=== PATIENT | male | born 1955 | race American Indian/Alaskan Native ===

== ENCOUNTER 2017-01-17 16:48 | Emergency (ER) | payer BC ==
[2017-01-17 18:16] VITALS: BMI 22.4
[2017-01-17 18:20] VITALS: O2SAT 100
--- NOTE | 2017-01-17 20:26 | C.PDOC ---
History Of Present Illness 61 y/o male presents to ED with complaint of dizziness, worse with head movement , for the last 2 weeks. Patient with history of benign positional dizziness, now concerned because episodes have been lasting longer. Patient states he was prescribed Antivert by Dr. Abby Cruz, taken 3 times a day, without improvement of symptoms. Otherwise, denies fever, chills, headache, nausea, vomiting, new weakness or numbness. Time Seen by Provider: 01/17/17 19:37 Chief Complaint (Nursing): Dizziness/Lightheaded History Per: Patient History/Exam Limitations: no limitations Onset/Duration Of Symptoms: Days Current Symptoms Are (Timing): Still Present Seizure Or Post-ictal Symptoms: None Fall Associated With With Symptoms: No Recent travel outside of the [place]: No Past Medical History Reviewed: Historical Data, Nursing Documentation, Vital Signs Vital Signs: Last Vital Signs Temp 97.8 F 01/17/17 21:15 Pulse 63 01/17/17 21:15 Resp 18 01/17/17 21:15 BP 115/67 01/17/17 21:15 Pulse Ox 100 01/17/17 21:52 - Medical History PMH: Fractures (LEFT FOREARM), Gastritis, HTN (CONTROLLED BY DIET.), Seizures ( A CHILD; STOPPED BY AGE 16) - [facility] Procedures ENDOSCOPIC BRONCHIAL BX (12/07/14) ESOPHAGOGASTRODUODENOSCOPY [EGD] W/CLOSED BIOPSY (02/20/14) SPINAL TAP (01/20/13) Family History: States: Unknown Family Hx - Social History Hx Tobacco Use: Yes Hx Alcohol Use: No Hx Substance Use: No - Immunization History Hx Tetanus Toxoid Vaccination: No Hx Influenza Vaccination: No Hx Pneumococcal Vaccination: No Review Of Systems Except As Marked, All Systems Reviewed And Found Negative. Constitutional: Negative for: Fever, Chills Cardiovascular: Negative for: Chest Pain, Palpitations Respiratory: Negative for: Cough, Shortness of Breath Gastrointestinal: Negative for: Nausea, Vomiting Musculoskeletal: Negative for: Neck Pain Neurological: Positive for: Dizziness. Negative for: Weakness, Numbness, Headache Physical Exam - Physical Exam Appears: Non-toxic, No Acute Distress Skin: Normal Color, Warm, Dry Head: Atraumatic, Normacephalic Eye(s): bilateral: EOMI, Other (pinpoint pupils) Ear(s): Bilateral: Normal Nose: Normal Oral Mucosa: Moist Throat: Normal, No Erythema, No Exudate, No Drooling Neck: Normal ROM, Supple Chest: Symmetrical Cardiovascular: Rhythm Regular, No Murmur Respiratory: Normal Breath Sounds, No Rales, No Rhonchi, No Wheezing Gastrointestinal/Abdominal: Soft, No Tenderness Back: Normal Inspection Extremity: Normal ROM, Capillary Refill (< 2 sec. ) Neurological/Psych: Oriented x3, Normal Speech, Normal Cognition ED Course And Treatment - Laboratory Results Result Diagrams: 01/17/17 20:37 01/17/17 20:37 Lab Interpretation: Normal (trop neg) ECG: Interpreted By Me ECG Rhythm: Sinus Rhythm, R BBB (incomplete) ECG Interpretation: Normal Rate From EC O2 Sat by Pulse Oximetry: 100 (RA) Pulse Ox Interpretation: Normal - Radiology CXR: Interpreted by Me CXR Interpretation: Yes: No Acute Disease - CT Scan/US CT Head Other Rad Studies (CT/US): Read By Radiologist, Radiology Report Reviewed CT/US Interpretation: IMPRESSION: No acute findings. Progress Note: EKG, CxR, CT head, bloodwork, urinalysis ordered. Treated with Antivert. Reevaluation Time: 21:48 Reassessment Condition: Improved Medical Decision Making Medical Decision Making: consider BPV- improved with Meclizine, normal w/u and head CT Disposition Doctor Will See Patient In The: Office Counseled Patient/Family Regarding: Studies Performed, Diagnosis - Disposition Referrals: Hannah Cruz MD [Staff Provider] - Disposition: HOME/ ROUTINE Disposition Time: 21:50 Condition: GOOD Additional Instructions: continue Meclizine/Antivert 25 mg every 6-8 hours as needed Follow-up with Dr. Cruz Consider Neurology follow-up of her preference. Prescriptions: Meclizine [Meclizine*] 25 mg PO Q6 PRN #30 tab PRN Reason: vertigo Instructions: Vertigo (ED), Benign Paroxysmal Positional Vertigo (ED) - Clinical Impression Clinical Impression: Vertigo - Scribe Statement The provider has reviewed the documentation as recorded by the Jamesibmaurilio Lanier Provider Scribe Attestation: All medical record entries made by the Scribe were at my direction and personally dictated by me. I have reviewed the chart and agree that the record accurately reflects my personal performance of the history, physical exam, medical decision making, and the department course for this patient. I have also personally directed, reviewed, and agree with the discharge instructions and disposition.
[2017-01-17 20:42] LABS: BASO % 0.9 % (0.0-2.0); EOS # 0.3 K/uL (0.0-0.7); EOS % 5.4 % (0.0-4.0); HEMATOCRIT 41.6 % (35.0-51.0); LYMPH # 2.1 K/uL (1.0-4.3); LYMPH % 40.6 % (20.0-40.0); MEAN CELL VOLUME 90.4 fL (80.0-94.0); MEAN CORPUSCULAR HEMOGLOBIN 29.4 pg (27.0-31.0); MEAN CORPUSCULAR HGB CONC 32.6 g/dL (33.0-37.0); MEAN PLATELET VOLUME 7.4 fL (7.2-11.7); MONO # 0.5 K/uL (0.0-0.8); MONO % 9.9 % (0.0-10.0); RED CELL DISTRIBUTION WIDTH 15.1 % (11.5-14.5); WHITE BLOOD COUNT 5.2 K/uL (4.8-10.8)
[2017-01-17 20:48] LABS: CHLORIDE 103 mmol/L (98-107)
[2017-01-17 20:49] LABS: POTASSIUM 4.3 mmol/L (3.6-5.2); SODIUM 138 mmol/L (132-148)
[2017-01-17 20:50] LABS: CHOLESTEROL 167 mg/dL (0-199)
[2017-01-17 20:51] LABS: ALB/GLOB RATIO 1.4 (1.0-2.1); ALKALINE PHOSPHATASE 58 U/L (38-126); ALT/SGPT 24 U/L (21-72); AST/SGOT 32 U/L (17-59); BLOOD UREA NITROGEN 14 mg/dL (9-20); CARBON DIOXIDE 26 mmol/L (22-30); GFR AFRICAN-AMERICAN > 60; GLUCOSE,RANDOM 84 mg/dL (75-110); TOTAL PROTEIN 7.5 g/dL (6.3-8.3)
[2017-01-17 20:52] LABS: ALCOHOL SERUM < 10 mg/dl (0-10); CALCIUM 8.9 mg/dl (8.6-10.4)
[2017-01-17 20:55] LABS: INR 1.2
[2017-01-17 21:16] VITALS: BP 115/67; PULSE 63; RESP 18; TEMP 97.8
--- NOTE | 2017-01-18 08:26 | CT ---
PROCEDURE: CT HEAD WITHOUT CONTRAST. HISTORY: Vertigo COMPARISON: None available. TECHNIQUE: Axial computed tomography images were obtained through the head/brain without intravenous contrast. Radiation dose: Total exam DLP = 748 mGy-cm. This CT exam was performed using one or more of the following dose reduction techniques: Automated exposure control, adjustment of the mA and/or kV according to patient size, and/or use of iterative reconstruction technique. FINDINGS: HEMORRHAGE: No intracranial hemorrhage. BRAIN: Mild to moderate brain volume loss. Scattered focal lucencies in the subcortical and periventricular white matter suggestive for chronic microvascular ischemic change. VENTRICLES: Unremarkable. No hydrocephalus. CALVARIUM: Unremarkable. PARANASAL SINUSES: Unremarkable as visualized. No significant inflammatory changes. MASTOID AIR CELLS: Unremarkable as visualized. No inflammatory changes. OTHER FINDINGS: None. IMPRESSION: Mild to moderate brain volume loss. Chronic microvascular ischemic change. If focal neurologic deficit persists, consider further evaluation with MRI. These findings were preliminarily reported at 8:46 p.m. on 01/17/[address] Shakeel Brooks from [facility].
--- NOTE | 2017-01-18 08:48 | RAD ---
HISTORY: dizzy COMPARISON: 11/04/2015 FINDINGS: LUNGS: Biapical pleural thickening with upper lobe granulomatous changes. No focal infiltrate or effusion. Mild venous congestion. PLEURA: No significant pleural effusion identified, no pneumothorax apparent. CARDIOVASCULAR: Normal. OSSEOUS STRUCTURES: No significant abnormalities. VISUALIZED UPPER ABDOMEN: Normal. OTHER FINDINGS: None. IMPRESSION: Biapical pleural thickening with upper lobe granulomatous changes. No focal infiltrate or effusion. Mild venous congestion.
--- NOTE | 2017-01-18 10:21 | CARD ---
APPROVED REPORT EKG Measurement Heart [id number] <Conclusion> Normal sinus rhythm ST elevation, consider early repolarization, pericarditis, or injury Abnormal ECG
== END 2017-01-17 22:05 | disposition home or self-care (01) ==
LOC: C.ER 16:48
DX: R42 Dizziness and giddiness (principal)
CPT/HCPCS: 70450; 71010; 80053; 80061; 83036; 84484; 85025; 85610; 85730; 86850; 86900; 93005; 99285; G0480

== ENCOUNTER 2017-03-14 15:25 | Emergency (ER) | payer BC ==
[2017-03-14 15:26] VITALS: BMI 22.4
--- NOTE | 2017-03-14 16:42 | C.PDOC ---
History Of Present Illness <Antwon Gregory - Last Filed: 03/14/17 20:17> <Klaus Dorsey - Last Filed: 03/15/17 19:26> 62M c/o epigastric pain that started at 1pm today. pain is constant and worse with moving and breathing. he has not had this before. (Klaus Dorsey) <Anwton Gregory - Last Filed: 03/14/17 20:17> <Klaus Dorsey - Last Filed: 03/15/17 19:26> Time Seen by Provider: 03/14/17 16:42 Chief Complaint (Nursing): Abdominal Pain Past Medical History - Medical History PMH: Fractures (LEFT FOREARM), Gastritis, HTN (CONTROLLED BY DIET.), Seizures ( A CHILD; STOPPED BY AGE 16) Denies: Chronic Kidney Disease Family History: States: Other Other Family History: nc - Social History Hx Tobacco Use: Yes Hx Alcohol Use: No Hx Substance Use: No - Immunization History Hx Tetanus Toxoid Vaccination: No Hx Influenza Vaccination: No Hx Pneumococcal Vaccination: No <Klaus Dorsey - Last Filed: 03/15/17 19:26> Vital Signs: Last Vital Signs Temp 97.6 F 03/14/17 20:34 Pulse 60 03/14/17 20:34 Resp 20 03/14/17 20:34 BP 112/76 03/14/17 20:34 Pulse Ox 100 03/14/17 20:34 - [facility] Procedures ENDOSCOPIC BRONCHIAL BX (12/07/14) ESOPHAGOGASTRODUODENOSCOPY [EGD] W/CLOSED BIOPSY (02/20/14) SPINAL TAP (01/20/13) Review Of Systems Constitutional: Negative for: Fever, Chills, Weakness, Malaise Cardiovascular: Negative for: Chest Pain, Edema, Light Headedness Respiratory: Negative for: Cough, Shortness of Breath, Hemoptysis Gastrointestinal: Positive for: Abdominal Pain. Negative for: Nausea, Vomiting , Diarrhea Genitourinary: Negative for: Dysuria Neurological: Negative for: Weakness, Numbness, Altered Mental Status, Headache <Klaus Dorsey - Last Filed: 03/15/17 19:26> Physical Exam - Physical Exam Appears: Non-toxic Skin: Warm, Dry, No Diaphoretic Head: Atraumatic Eye(s): bilateral: PERRL Nose: No Epistaxis Oral Mucosa: Moist Neck: Normal ROM Cardiovascular: Rhythm Regular Respiratory: No Decreased Breath Sounds, No Accessory Muscle Use, No Rales, No Rhonchi, No Wheezing Gastrointestinal/Abdominal: Soft, Tenderness (epigastric), No Distention, No Guarding, No Rebound Extremity: No Swelling Neurological/Psych: Oriented x3, Other (no focal deficits) <Klaus Dorsey - Last Filed: 03/15/17 19:26> ED Course And Treatment - Laboratory Results Result Diagrams: 03/14/17 17:20 03/14/17 17:20 <Antwon Gregory - Last Filed: 03/14/17 20:17> - Laboratory Results Result Diagrams: 03/14/17 17:20 03/14/17 17:20 O2 Sat by Pulse Oximetry: 98 <Klaus Dorsey - Last Filed: 03/15/17 19:26> Medical Decision Making <Antwon Gregory - Last Filed: 03/14/17 20:17> <Klaus Dorsey - Last Filed: 03/15/17 19:26> Medical Decision Making: ecg- sinus brenden 55, nl axis, no acute ischmia, similar to prior 01/17/17 (Klaus Dorsey) Disposition Counseled Patient/Family Regarding: Studies Performed, Diagnosis, Need For Followup - Disposition Disposition Time: 19:00 <Antwon Gregory - Last Filed: 03/14/17 20:17> <Klaus Dorsey - Last Filed: 03/15/17 19:26> - Disposition Referrals: [facility] [Outside] [facility] [Outside] Salvador Alfaro MD [Staff Provider] - Disposition: HOSPITALIZED Condition: FAIR Additional Instructions: Please follow up regarding the hypervascular liver lesion. Might need a repeat CT scan in 6 months Instructions: Gas and Bloating (ED), Abdominal Pain (ED) - Clinical Impression Clinical Impression: Abdominal pain, Liver lesion, Enlarged prostate Physician Patient Turnover Patient Signed Over To: Antwon Gregory Handoff Comments: pending CT <Klaus Dorsey - Last Filed: 03/15/17 19:26>
--- NOTE | 2017-03-14 17:27 | RAD ---
HISTORY: Chest pain COMPARISON: 01/17/2017. TECHNIQUE: Chest PA and lateral FINDINGS: LUNGS: The lungs are hyperinflated and there is peribronchial thickening with chronic changes in both lungs. There is no focal consolidation. PLEURA: No significant pleural effusion identified. No pneumothorax apparent. CARDIOVASCULAR: Normal. OSSEOUS STRUCTURES: No significant abnormalities. VISUALIZED UPPER ABDOMEN: Normal. OTHER FINDINGS: None. IMPRESSION: No active pulmonary disease. COPD.
[2017-03-14 17:39] LABS: EOS # 0.3 K/uL (0.0-0.7); EOS % 6.3 % (0.0-4.0); HEMOGLOBIN 12.8 g/dL (12.0-18.0); LYMPH # 1.7 K/uL (1.0-4.3); LYMPH % 35.9 % (20.0-40.0); MEAN CELL VOLUME 90.5 fL (80.0-94.0); MEAN CORPUSCULAR HEMOGLOBIN 29.5 pg (27.0-31.0); MEAN CORPUSCULAR HGB CONC 32.6 g/dL (33.0-37.0); MEAN PLATELET VOLUME 7.3 fL (7.2-11.7); MONO # 0.5 K/uL (0.0-0.8); MONO % 9.8 % (0.0-10.0); NEUT # 2.3 K/uL (1.8-7.0); RBC 4.33 Mil/uL (4.40-5.90); RED CELL DISTRIBUTION WIDTH 15.1 % (11.5-14.5); WHITE BLOOD COUNT 4.9 K/uL (4.8-10.8)
[2017-03-14 17:43] LABS: ALBUMIN 3.9 g/dL (3.5-5.0)
[2017-03-14 17:45] LABS: GFR AFRICAN-AMERICAN > 60; GFR NON-AFRICAN AMERICAN > 60
[2017-03-14 17:46] LABS: ALB/GLOB RATIO 1.2 (1.0-2.1); ALT/SGPT 20 U/L (21-72); AST/SGOT 28 U/L (17-59); BLOOD UREA NITROGEN 10 mg/dL (9-20); CALCIUM 8.8 mg/dl (8.6-10.4); LIPASE 82 U/L (23-300)
[2017-03-14] MEDS ORDERED: Iohexol 350mg/ml 100 ML ONE (18:30)
--- NOTE | 2017-03-14 20:11 | CT ---
EXAM: CT Abdomen and Pelvis With Intravenous Contrast CLINICAL HISTORY: 62 years old, male; Pain; Abdominal pain; Epigastric TECHNIQUE: Axial computed tomography images of the abdomen and pelvis with intravenous contrast. This CT exam was performed using one or more of the following dose reduction techniques: automated exposure control, adjustment of the mA and/or kV according to patient size, and/or use of iterative reconstruction technique. Coronal and sagittal reformatted images were created and reviewed. CONTRAST: 100 mL of omnipaque 350 administered intravenously. EXAM DATE/TIME: Exam ordered 03/14/2017 5:08 PM COMPARISON: No relevant prior studies available. FINDINGS: Lower thorax: There is mild bronchiectasis at the lung bases there is a 2.7 cm low density lesion noted in the upper pole of the left kidney with a density measurement of 10 H. ABDOMEN: Liver: There is a 1.2 cm hypervascular lesion noted in the posterior superior segment of the right lobe of the liver Gallbladder and bile ducts: Unremarkable. No calcified stones. No ductal dilation. Pancreas: Unremarkable. No mass. No ductal dilation. Spleen: Unremarkable. No splenomegaly. Adrenals: Unremarkable. No mass. Kidneys and ureters: Unremarkable. No solid mass. No hydronephrosis. Stomach and bowel: Unremarkable. No obstruction. No mucosal thickening. Appendix: No findings to suggest acute appendicitis. PELVIS: Bladder: The prostate measures 6.1 x 6.5 x 7.2 cm. The prostate projects into the bladder base. The bladder measures approximately 11.7 x 10 x 1.4 cm for a volume of approximately 684 cc. There appears to be a left sided bladder diverticulum. Reproductive: Calcifications are noted in the scrotum. These could be phleboliths or scrotal pearls ABDOMEN and PELVIS: Intraperitoneal space: Unremarkable. No free air. No significant fluid collection. Bones/joints: Degenerative changes are noted of the lumbar spine. Degenerative changes are noted of both hips. No acute fracture. No dislocation. Soft tissues: Unremarkable. Vasculature: Unremarkable. No abdominal aortic aneurysm. Lymph nodes: Prominent inguinal lymph nodes are noted bilaterally. IMPRESSION: 1. 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 For patients with low to average risk of malignancy, no further follow-up is necessary. For patients with high risk of malignancy, recommend follow-up CT or MR in 6 months or multiphasic MR. 2. Enlarged prostate with distended bladder and bladder diverticulum. The findings suggest chronic outlet obstruction. Correlation with clinical exam and serum PSA might be considered. 3. Inguinal adenopathy. Clinical correlation suggested. 4. Left renal cyst
[2017-03-14 20:36] VITALS: BP 112/76; PULSE 60; RESP 20; TEMP 97.6
[2017-03-15 19:26] VITALS: O2SAT 98
--- NOTE | 2017-03-19 19:25 | CARD ---
APPROVED REPORT EKG Measurement Heart [id number] <Conclusion> Sinus bradycardia ST elevation, consider early repolarization, pericarditis, or injury Nonspecific ST abnormality Abnormal ECG
== END 2017-03-14 20:36 | disposition short-term general hospital (02) ==
LOC: C.ER 15:25
DX: N40.0 Benign prostatic hyperplasia without lower urinary tract symptoms (principal); K76.9 Liver disease, unspecified; R10.13 Epigastric pain; I10 Essential (primary) hypertension
CPT/HCPCS: 71020; 74177; 80053; 83690; 84484; 85025; 96374; 99285; J2270; Q9967

== ENCOUNTER 2018-05-18 14:17 | Inpatient (IN) | payer BC ==
[2018-05-18 14:17] VITALS: BMI 22.4
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
[2018-05-18] MEDS ORDERED: Oxycodone/Acetaminophen 5/325 mg Tab PO ONE (15:01)
[2018-05-18] MEDS ORDERED: Oxycodone/Acetaminophen 5/325 mg Tab ONE (15:17)
[2018-05-18 15:42] LABS: EOS # 0.4 K/uL (0.0-0.7); LYMPH # 1.7 K/uL (1.0-4.3); MEAN CORPUSCULAR HGB CONC 33.2 g/dL (33.0-37.0); MONO # 0.5 K/uL (0.0-0.8)
[2018-05-18 15:47] LABS: ALB/GLOB RATIO 1.3 (1.0-2.1); ALT/SGPT 24 U/L (21-72); AST/SGOT 19 U/L (17-59); BLOOD UREA NITROGEN 12 mg/dL (9-20); CALCIUM 9.4 mg/dl (8.6-10.4); GFR NON-AFRICAN AMERICAN > 60
[2018-05-18 15:52] LABS: BASO % 0.8 % (0.0-2.0); HEMOGLOBIN 12.1 g/dL (12.0-18.0); LYMPH % 29.7 % (20.0-40.0); MEAN CELL VOLUME 88.8 fL (80.0-94.0); MEAN CORPUSCULAR HEMOGLOBIN 29.5 pg (27.0-31.0); MEAN PLATELET VOLUME 7.2 fL (7.2-11.7); MONO % 9.2 % (0.0-10.0); NEUT # 3.1 K/uL (1.8-7.0); NEUT % 53.3 % (50.0-75.0); RBC 4.09 Mil/uL (4.40-5.90); RED CELL DISTRIBUTION WIDTH 15.3 % (11.5-14.5); WHITE BLOOD COUNT 5.7 K/uL (4.8-10.8)
--- NOTE | 2018-05-18 16:51 | RAD ---
Date of service: 05/18/2018 PROCEDURE: Right Ankle Radiographs. HISTORY: HX R ANKLE FX COMPARISON: None FINDINGS: BONES: Status post open reduction and internal fixation of fractures in the distal tibia and fibula. There are multiple metallic plates in the distal tibia transfixed with screws. There is fluffy periosteal reaction in the distal tibia and sclerosis in the distal tibial epiphysis. The distal fibula is grossly normal in appearance. There is diffuse bone demineralization. JOINTS: Grossly preserved. Ankle mortise maintained. Talar dome intact SOFT TISSUES: There is severe periarticular soft tissue swelling. OTHER FINDINGS: None. IMPRESSION: Status post open reduction and internal fixation of fracture in the distal tibia with multiple plates and screws. No radiographic evidence for hardware complications. Fluffy periosteal reaction in the distal tibia with increased sclerosis in the distal epiphysis of tibia may represent acute/ chronic osteomyelitis in the appropriate clinical setting. Severe periarticular soft tissue swelling may represent cellulitis.
[2018-05-18] MEDS ORDERED: Piperacillin/Tazobact 3.375 gm 100 ML IVPB STA (17:35)
[2018-05-18] MEDS ORDERED: Piperacillin/Tazobact 3.375 gm 100 ML IVPB ONE (17:41)
[2018-05-18] MEDS ORDERED: Iodixanol 320 MG/ML 100 ML BOTTLE IV ONE (17:52)
[2018-05-18] MEDS ORDERED: Vancomycin 1 GM 1 GM/250 ML BAG IVPB ONE (18:11)
[2018-05-18] MEDS ORDERED: Vancomycin 1 GM in Sodium Chloride 0.9% 200 ML IVPB STA (18:14)
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
[2018-05-19] MEDS ORDERED: Pneumococcal 23-Valent Vaccine IM ONE (00:15)
[2018-05-19] MEDS: Oxycodone/Acetaminophen 5/325 mg Tab PO PRN (06:52)
--- NOTE | 2018-05-19 07:12 | CT ---
Date of service: 05/18/2018 PROCEDURE: CT HEAD WITHOUT CONTRAST. HISTORY: Headache. Trauma. COMPARISON: None available. TECHNIQUE: Axial computed tomography images were obtained through the head/brain without intravenous contrast. Radiation dose: Total exam DLP = 1106 mGy-cm. This CT exam was performed using one or more of the following dose reduction techniques: Automated exposure control, adjustment of the mA and/or kV according to patient size, and/or use of iterative reconstruction technique. FINDINGS: HEMORRHAGE: No intracranial hemorrhage. BRAIN: Mild cerebral volume loss and decreased attenuation of the periventricular white matter likely chronic microangiopathic disease. VENTRICLES: Unremarkable. No hydrocephalus. CALVARIUM: Probable acute fracture of the lateral wall of the left orbit. Clinical correlation. Postsurgical posttraumatic changes of the left posterior cortex involving the calvarium. PARANASAL SINUSES: Small amount of fluid within the right sphenoid sinus. MASTOID AIR CELLS: Unremarkable as visualized. No inflammatory changes. OTHER FINDINGS: Mild soft tissue edema with laceration of the left supraorbital and periorbital region. IMPRESSION: Acute fracture of the left lateral wall of the left orbit. Chronic microvascular ischemic change. Mild cerebral volume loss. Sinus mucosal disease as above. Additional findings as above. These findings were preliminarily reported at 7:23 p.m. on 05/18/[address] Matthew Bills from [facility].
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
--- NOTE | 2018-05-19 11:06 | CARD ---
APPROVED REPORT Date of service: 05/18/2018 EKG Measurement Heart [id number] <Conclusion> Normal sinus rhythm ST elevation, consider early repolarization, pericarditis, or injury Abnormal ECG
--- NOTE | 2018-05-19 11:16 | VASCLAB ---
Date of service: 05/18/2018 PROCEDURE: Right Lower Extremity Venous Duplex Exam. HISTORY: HX R ANKLE FX PRIORS: None. TECHNIQUE: Right common femoral, femoral, popliteal and posterior tibial, peroneal and great saphenous veins were evaluated. Flow was assessed with color Doppler, compressibility, assessment of phasic flow and augmentation response. Report prepared by Andrei Giron, SATNAM, RVT FINDINGS: RIGHT: 1. Common Femoral Vein: 1.1. Compressibility - Fully compressible: Thrombus - None: Flow - Phasic: Augmentation -Normal: Reflux - None. 2. Femoral Vein: 2.1. Compressibility - Fully compressible: Thrombus - None: Flow - Phasic: Augmentation -Normal: Reflux - None. 3. Popliteal Vein: 3.1. Compressibility - Fully compressible: Thrombus - None: Flow - Phasic: Augmentation -Normal: Reflux - None. 4. Posterior Tibial Vein: 4.1. Compressibility - Fully compressible: Thrombus - None: Flow - Phasic: Augmentation -Normal: Reflux - None. 5. Peroneal Vein: 5.1. Compressibility - Fully compressible: Thrombus - None: Flow - Phasic: Augmentation -Normal: Reflux - None. 6. Great Saphenous Vein: 6.1. Compressibility - Fully compressible: Thrombus -None: Flow - Phasic: Augmentation - Normal: Reflux - None. OTHER FINDINGS: IMPRESSION: No evidence of deep or superficial vein thrombosis of the right lower extremity with excellent venous flow. Normal valve function noted of the right side. Normal venous flow noted in the left common femoral vein.
--- NOTE | 2018-05-19 14:26 | CP.PCM.PN ---
Subjective - Date & Time of Evaluation Date of Evaluation: 05/19/18 Time of Evaluation: 14:23 - Subjective Subjective: CHIEF COMPLAINTS TODAY : Pain in the left side of the face and the chest ROS. HEENT : N. Resp : No cough, wheezing , or hemoptysis Cardio : No anginal CP, PND, orthopnea, palpitation GI : No abd.pain, n/v ,diarrhea or GI bleeding . SENIOR EDUCATION SPECIALIST : No headache, vertigo, focal deficit. Musculoskel : No joint swelling , Derm : No rash Psych : Normal affect. Ext : No swelling ,calf pain PE. Pt. is alert awake in no distress. V.S As noted in the chart Head ,ear nose,throat and eyes : Normal. Tenderness on the left side of the face with superficial wound Neck : Supple with normal carotids. Lungs: Clear air entry. Tender left side of the chest Heart : S1 & S2 normal with S4. No murmur. Abd : Soft non tender with normal bowel sounds. Neuro : Moves all ext. with no localized deficit. Ext : No edema with intact pulses.Non tender calves right ankle shows open wound appears to be infected Derm : No rashes or decubitus ulcer. LABS/RADIOLOGY: The wound on the right ankle shows gram-positive and gram- negative organism. The CT of the head shows a fracture of the lateral wall of the orbit ASSESSMENT/PLAN : We will consult with the maxillofacial surgery. IV antibiotics and pain management Objective - Vital Signs/Intake and Output Vital Signs (last 24 hours): Temp Pulse Resp BP Pulse Ox 97.9 F 62 20 111/65 99 05/19/18 07:00 05/19/18 07:00 05/19/18 07:00 05/19/18 07:00 05/19/18 07:00 - Medications Medications: Current Medications Heparin Sodium (Porcine) (Heparin) 5,000 units SC Q12 [facility] Last Admin: 05/19/18 09:58 Dose: 5,000 units Ceftriaxone Sodium 1 gm/ (Sodium Chloride) 100 mls @ 100 mls/hr IVPB Q12H [facility] PRN Reason: Protocol Last Admin: 05/19/18 12:09 Dose: 100 mls/hr Vancomycin HCl 1 gm/ Sodium (Chloride) 200 mls @ 166.7 mls/hr IVPB Q24H [facility] PRN Reason: Protocol Oxycodone/Acetaminophen (Percocet 5/325 Mg Tab) 1 tab PO Q4H PRN PRN Reason: Pain, moderate (4-7) Stop: 05/21/18 20:35 Last Admin: 05/19/18 06:52 Dose: 1 tab Tamsulosin HCl (Flomax) 0.4 mg PO DAILY [facility] Last Admin: 05/19/18 09:58 Dose: 0.4 mg - Labs Labs: 05/18/18 15:28 05/18/18 15:28
[2018-05-19] MEDS: Vancomycin 1 GM in Sodium Chloride 0.9% 200 ML IVPB SCH (17:20)
--- NOTE | 2018-05-19 19:08 | CP.PCM.PN ---
Subjective - Date & Time of Evaluation Date of Evaluation: 05/19/18 Time of Evaluation: 19:08 - Subjective Subjective: CHIEF COMPLAINTS TODAY : afebrile c/o Pain in the left side of the face and the chest +ve purulent drainage from incision site right ankle ROS. HEENT : N. Resp : No cough, wheezing , or hemoptysis Cardio : No anginal CP, PND, orthopnea, palpitation GI : No abd.pain, n/v ,diarrhea or GI bleeding . X RAY TECHNOLOGIST : No headache, vertigo, focal deficit. Musculoskel : No joint swelling , Derm : MULTIPLE EXCORIATIONS LEFT-SIDED FORE HEAD,CUBITAL FOSSA, LEFT SHOULDER. Psych : Normal affect. Ext : No swelling ,calf pain.RLE INCISION SITE MIDLINE PURULENT DRAINAGE. STS AROUND THE ANKLE RLE. PE. Pt. is alert awake in no distress. V.S As noted in the chart Head ,ear nose,throat and eyes : Normal. Tenderness on the left side of the face with superficial wound Neck : Supple with normal carotids. Lungs: Clear air entry. Tender left side of the chest Heart : S1 & S2 normal with S4. No murmur. Abd : Soft non tender with normal bowel sounds. Neuro : Moves all ext. with no localized deficit. Ext : No edema with intact pulses.Non tender calves .RIGHT ANKLE WITH MIDLINE INCISION RLE SMALL DEHISCENCE WITH PURULENT DRAINAGE. Derm : No rashes or decubitus ulcer.MULTIPLE EXCORIATIONS LEFT-SIDED FORE HEAD, CUBITAL FOSSA, LEFT SHOULDER. LABS/RADIOLOGY: WOUND CULTURE right ankle shows gram-positive and gram-negative organism. The CT of the head shows a fracture of the lateral wall of the orbit. RIGHT ANKLE X-RAY. sEVERE PERIARTICULAR SOFT TISSUE SWELLING MAY REPRESENT CELLULITIS. SOME FLUFFY PERIOSTEAL REACTION DISTAL TIBIA ?ACUTE ON CHRONIC OSTEOMYELITIS. DUPLEX VENOUS-VE FOR SUPERFICIAL OR DVT. Objective - Vital Signs/Intake and Output Vital Signs (last 24 hours): Temp Pulse Resp BP Pulse Ox 98 F 63 18 97/54 L 98 05/19/18 16:47 05/19/18 18:00 05/19/18 16:47 05/19/18 16:47 05/19/18 16:47 - Medications Medications: Current Medications Heparin Sodium (Porcine) (Heparin) 5,000 units SC Q12 [facility] Last Admin: 05/19/18 09:58 Dose: 5,000 units Ceftriaxone Sodium 1 gm/ (Sodium Chloride) 100 mls @ 100 mls/hr IVPB Q12H [facility] PRN Reason: Protocol Last Admin: 05/19/18 12:09 Dose: 100 mls/hr Vancomycin HCl 1 gm/ Sodium (Chloride) 200 mls @ 166.7 mls/hr IVPB Q24H [facility] PRN Reason: Protocol Last Admin: 05/19/18 17:20 Dose: 166.7 mls/hr Oxycodone/Acetaminophen (Percocet 5/325 Mg Tab) 1 tab PO Q4H PRN PRN Reason: Pain, moderate (4-7) Stop: 05/21/18 20:35 Last Admin: 05/19/18 06:52 Dose: 1 tab Tamsulosin HCl (Flomax) 0.4 mg PO DAILY [facility] Last Admin: 05/19/18 09:58 Dose: 0.4 mg - Labs Labs: 05/18/18 15:28 05/18/18 15:28 Assessment and Plan (1) Syncope Assessment & Plan: CT HEAD -NOTED ACUTE FRACTURE LEFT LATERAL WALL LEFT ORBITS. (LT EYE SLIGHTLY RED BUT NO VISUAL PROBLEMS. 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 PATIENT USING HIS SUGGESTED EYEDROPS. WILL GET GRAIN AND YEAST PLANTS SUPERVISOR INVOLVED WITH THE NEW FINDING OF FRACTURE OF LEFT LATERAL WALL OF ORBIT. Status: Acute (2) Rib pain Assessment & Plan: CT CHEST-SHOWS LEFT FIFTH RIB FRACTURE. SEEN BY ORTHOPEDIC TODAY AND APPRECIATED Status: Acute (3) Wound dehiscence, surgical Assessment & Plan: WOUND CULTURE +VE GRAM-POSITIVE COCCI/GRAM-NEGATIVE RODS. CONTINUE iv ROCEPHIN 1 G EVERY 12 HOURLY 05/18/18 CONTINUE iv VANCOMYCIN 1 G EVERY 24 HOURLY 05/17/18/ VANC TROUGH pRIOR TO THE FOURTH DOSE AND KEEP BETWEEN 10 AND 20 ANKLE X-RAY REVIEWED -STS / ? ACUTE ON CHRONIC OSTEOMYELITIS. ORTHO EVALUATION/ AND SUGGESTIONS AWAITED. WILL ADJUST ANTIBIOTICS AFTER FINAL CULTURES. Status: Acute (4) Cervical radiculopathy Status: Acute (5) GERD (gastroesophageal reflux disease) Status: Acute (6) HTN (hypertension) Status: Acute (7) BPH (benign prostatic hyperplasia) Status: Acute (8) Lumbar arthropathy Status: Acute
[2018-05-19] MEDS: Lidocaine 5% Patch TD SCH (19:59)
--- NOTE | 2018-05-20 06:12 | CON ---
DATE: 05/19/2018 ADMITTED BY: Alfa Ramos MD I was called in to evaluate him for a fracture of his left fifth rib as well as drainage from the ankle. The patient is known to be in the past and has a pilon fracture of the distal tibia and fibula, and had open reduction and internal fixation. He develops sporadic drainage off and on. I was contemplating to remove the hardware including the distal tibia fibular plates. He has a plate upright to the distal tibia from the posterior approach also, and also I was called in to evaluate his rib fracture. PHYSICAL EXAMINATION: Revealed a 63-year-old male, who did not appear to be in acute distress. Complained of pain to the left anterior rib cage and no crepitus noted. No evidence of pneumothorax noted. Tenderness along the left fourth and sixth ribs noted and auscultation was within normal limits. Examination of the left ankle revealed minimal drainage. There is small area of eschar over the anterior aspect of the ankle as well as the lateral aspect of the ankle. X-rays of the ankle revealed status post open reduction and internal fixation of the distal tibia and fibular fracture with internal fixation . CAT scan of the chest revealed a fracture of the left fifth rib. DIAGNOSES: 1. Fracture of the left distal tibia and fibula, status post open reduction and internal fixation with sporadic off and on drainage. 2. Fracture of the left fifth rib. Treatment at this point, the patient was started on IV antibiotics by Dr. Cruz. We will see how he responds to that, but if he has reoccurrence of drainage, we will consider removal of the hardware. As far as the rib fracture is concerned, treatment is symptomatic. He has no evidence of pneumothorax. We will watch him. The patient also will benefit from Lidoderm patches. Justice Ramirez MD
[2018-05-20] MEDS: Oxycodone/Acetaminophen 5/325 mg Tab PO PRN (08:00)
[2018-05-20 08:05] LABS: BASO # 0.1 K/uL (0.0-0.2); BASO % 1.5 % (0.0-2.0); EOS # 0.3 K/uL (0.0-0.7); EOS % 7.6 % (0.0-4.0); HEMOGLOBIN 13.2 g/dL (12.0-18.0); LYMPH # 1.2 K/uL (1.0-4.3); LYMPH % 27.2 % (20.0-40.0); MEAN CELL VOLUME 88.6 fL (80.0-94.0); MEAN CORPUSCULAR HEMOGLOBIN 30.3 pg (27.0-31.0); MEAN CORPUSCULAR HGB CONC 34.2 g/dL (33.0-37.0); MEAN PLATELET VOLUME 8.2 fL (7.2-11.7); MONO # 0.4 K/uL (0.0-0.8); MONO % 9.2 % (0.0-10.0); NEUT # 2.5 K/uL (1.8-7.0); NEUT % 54.5 % (50.0-75.0); NRBC % 0.3 % (0.0-2.0); RBC 4.34 Mil/uL (4.40-5.90); RED CELL DISTRIBUTION WIDTH 15.1 % (11.5-14.5); WHITE BLOOD COUNT 4.5 K/uL (4.8-10.8)
[2018-05-20 08:18] LABS: ALB/GLOB RATIO 1.1 (1.0-2.1); ALBUMIN 3.7 g/dL (3.5-5.0); ALT/SGPT 18 U/L (21-72); AST/SGOT 24 U/L (17-59); BLOOD UREA NITROGEN 12 mg/dL (9-20); CALCIUM 9.2 mg/dl (8.6-10.4); GFR NON-AFRICAN AMERICAN > 60
--- NOTE | 2018-05-20 12:08 | CP.PCM.PN ---
Subjective - Date & Time of Evaluation Date of Evaluation: 05/20/18 Time of Evaluation: 12:08 - Subjective Subjective: CHIEF COMPLAINTS TODAY : afebrile c/o Pain LT.JAW ON CHEWING SEEN BY DR MALIN( ORTHO ) +ve purulent drainage from incision site right ankle ROS. HEENT : N. Resp : No cough, wheezing , or hemoptysis Cardio : No anginal CP, PND, orthopnea, palpitation GI : No abd.pain, n/v ,diarrhea or GI bleeding . 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 Musculoskel : No joint swelling , Derm : MULTIPLE EXCORIATIONS LEFT-SIDED FORE HEAD,CUBITAL FOSSA, LEFT SHOULDER. Psych : Normal affect. Ext : No swelling ,calf pain.RLE INCISION SITE MIDLINE PURULENT DRAINAGE. STS AROUND THE ANKLE RLE. PE. Pt. is alert awake in no distress. V.S As noted in the chart Head ,ear nose,throat and eyes : Normal. Tenderness on the left side of the face with superficial wound Neck : Supple with normal carotids. Lungs: Clear air entry. Tender left side of the chest Heart : S1 & S2 normal with S4. No murmur. Abd : Soft non tender with normal bowel sounds. Neuro : Moves all ext. with no localized deficit. Ext : No edema with intact pulses.Non tender calves .RIGHT ANKLE WITH MIDLINE INCISION RLE SMALL DEHISCENCE WITH PURULENT DRAINAGE. Derm : No rashes or decubitus ulcer.MULTIPLE EXCORIATIONS LEFT-SIDED FORE HEAD, CUBITAL FOSSA, LEFT SHOULDER. LABS/RADIOLOGY: WOUND CULTURE right ankle shows MSSA/SERRATIA MARSCENS S -CTX The CT of the head shows a fracture of the lateral wall of the orbit. RIGHT ANKLE X-RAY. sEVERE PERIARTICULAR SOFT TISSUE SWELLING MAY REPRESENT CELLULITIS. SOME FLUFFY PERIOSTEAL REACTION DISTAL TIBIA ?ACUTE ON CHRONIC OSTEOMYELITIS. DUPLEX VENOUS-VE FOR SUPERFICIAL OR DVT. Objective - Vital Signs/Intake and Output Vital Signs (last 24 hours): Temp Pulse Resp BP Pulse Ox 97.9 F 60 20 97/53 L 100 05/19/18 23:20 05/20/18 07:52 05/19/18 23:20 05/19/18 23:20 05/19/18 23:20 - Medications Medications: Current Medications Heparin Sodium (Porcine) (Heparin) 5,000 units SC Q12 [facility] Last Admin: 05/20/18 10:58 Dose: 5,000 units Ceftriaxone Sodium 1 gm/ (Sodium Chloride) 100 mls @ 100 mls/hr IVPB Q12H [facility] PRN Reason: Protocol Last Admin: 05/20/18 11:41 Dose: 100 mls/hr Vancomycin HCl 1 gm/ Sodium (Chloride) 200 mls @ 166.7 mls/hr IVPB Q24H [facility] PRN Reason: Protocol Last Admin: 05/19/18 17:20 Dose: 166.7 mls/hr Lidocaine (Lidoderm) 1 ea TD Q24H [facility] Last Admin: 05/19/18 19:59 Dose: 1 ea Oxycodone/Acetaminophen (Percocet 5/325 Mg Tab) 1 tab PO Q4H PRN PRN Reason: Pain, moderate (4-7) Stop: 05/21/18 20:35 Last Admin: 05/20/18 08:00 Dose: 1 tab Tamsulosin HCl (Flomax) 0.4 mg PO DAILY [facility] Last Admin: 05/20/18 09:33 Dose: 0.4 mg - Labs Labs: 05/20/18 07:39 05/20/18 07:39 Assessment and Plan (1) Syncope Status: Acute (2) Rib pain Status: Acute (3) Wound dehiscence, surgical Assessment & Plan: CONTINUE iv ROCEPHIN 1 G EVERY 12 HOURLY 05/18/18 CONTINUE iv VANCOMYCIN 1 G EVERY 24 HOURLY 05/17/18/ VANC TROUGH pRIOR TO THE FOURTH DOSE AND KEEP BETWEEN 10 AND 20 ANKLE X-RAY REVIEWED -STS / ? ACUTE ON CHRONIC OSTEOMYELITIS. ORTHO EVALUATION/ AND SUGGESTIONS NOTED. TRIAL OF IV ANTIBIOTICS FIRST PER ORTHO. Status: Acute (4) Cervical radiculopathy Status: Acute (5) GERD (gastroesophageal reflux disease) Status: Acute (6) HTN (hypertension) Status: Acute (7) BPH (benign prostatic hyperplasia) Status: Acute (8) Lumbar arthropathy Status: Acute (9) Jaw pain Assessment & Plan: AWAIT XRAY MAXILLO FACIAL R/O FRACTURE/OR TMJ DISLOCATION VS TOOTH INFECTION. PT ON ABX . LISTERINE GARGLES TID. Status: Acute
--- NOTE | 2018-05-20 14:35 | CP.PCM.PN ---
Subjective - Date & Time of Evaluation Date of Evaluation: 05/20/18 Time of Evaluation: 14:34 - Subjective Subjective: CHIEF COMPLAINTS TODAY : Pain in the left side of the face and the chest the nursing staff infomed me that the patient has difficulty chewing ROS. HEENT : N. Resp : No cough, wheezing , or hemoptysis Cardio : No anginal CP, PND, orthopnea, palpitation GI : No abd.pain, n/v ,diarrhea or GI bleeding . 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 Musculoskel : No joint swelling , Derm : No rash Psych : Normal affect. Ext : No swelling ,calf pain PE. Pt. is alert awake in no distress. V.S As noted in the chart Head ,ear nose,throat and eyes : Normal. Tenderness on the left side of the face with superficial wound Neck : Supple with normal carotids. Lungs: Clear air entry. Tender left side of the chest Heart : S1 & S2 normal with S4. No murmur. Abd : Soft non tender with normal bowel sounds. Neuro : Moves all ext. with no localized deficit. Ext : No edema with intact pulses.Non tender calves right ankle shows open wound appears to be infected Derm : No rashes or decubitus ulcer. LABS/RADIOLOGY: The wound on the right ankle shows gram-positive and gram- negative organism. The CT of the head shows a fracture of the lateral wall of the orbit the wound culture on right ankle shows staph aureus and marcena ASSESSMENT/PLAN : We will consult with the maxillofacial surgery.currently no maxillofac service is available in [facility]3] IV antibiotics and pain management x-ray of the TM joint Objective - Vital Signs/Intake and Output Vital Signs (last 24 hours): Temp Pulse Resp BP Pulse Ox 97.9 F 60 20 97/53 L 100 05/19/18 23:20 05/20/18 07:52 05/19/18 23:20 05/19/18 23:20 05/19/18 23:20 - Medications Medications: Current Medications Heparin Sodium (Porcine) (Heparin) 5,000 units SC Q12 [facility] Last Admin: 05/20/18 10:58 Dose: 5,000 units Ceftriaxone Sodium 1 gm/ (Sodium Chloride) 100 mls @ 100 mls/hr IVPB Q12H [facility] PRN Reason: Protocol Last Admin: 05/20/18 11:41 Dose: 100 mls/hr Vancomycin HCl 1 gm/ Sodium (Chloride) 200 mls @ 166.7 mls/hr IVPB Q24H [facility] PRN Reason: Protocol Last Admin: 05/19/18 17:20 Dose: 166.7 mls/hr Lidocaine (Lidoderm) 1 ea TD Q24H [facility] Last Admin: 05/19/18 19:59 Dose: 1 ea Oxycodone/Acetaminophen (Percocet 5/325 Mg Tab) 1 tab PO Q4H PRN PRN Reason: Pain, moderate (4-7) Stop: 05/21/18 20:35 Last Admin: 05/20/18 08:00 Dose: 1 tab Tamsulosin HCl (Flomax) 0.4 mg PO DAILY [facility] Last Admin: 05/20/18 09:33 Dose: 0.4 mg - Labs Labs: 05/20/18 07:39 05/20/18 07:39
[2018-05-20] MEDS: Vancomycin 1 GM in Sodium Chloride 0.9% 200 ML IVPB SCH (17:28)
[2018-05-20] MEDS ORDERED: Dorzolamide 2% Opht Sol 10ml OU SCH (18:00)
[2018-05-20] MEDS: Lidocaine 5% Patch TD SCH (19:56)
[2018-05-20] MEDS: Latanoprost 2.5 ml Opht Soln OS SCH (21:42)
[2018-05-21 08:06] LABS: BASO # 0.1 K/uL (0.0-0.2); BASO % 1.1 % (0.0-2.0); EOS # 0.4 K/uL (0.0-0.7); EOS % 7.9 % (0.0-4.0); HEMOGLOBIN 13.1 g/dL (12.0-18.0); LYMPH # 1.6 K/uL (1.0-4.3); LYMPH % 28.9 % (20.0-40.0); MEAN CELL VOLUME 88.4 fL (80.0-94.0); MEAN CORPUSCULAR HEMOGLOBIN 30.5 pg (27.0-31.0); MEAN CORPUSCULAR HGB CONC 34.6 g/dL (33.0-37.0); MEAN PLATELET VOLUME 7.4 fL (7.2-11.7); MONO # 0.5 K/uL (0.0-0.8); MONO % 9.5 % (0.0-10.0); NEUT # 2.9 K/uL (1.8-7.0); NEUT % 52.6 % (50.0-75.0); NRBC % 0.1 % (0.0-2.0); RBC 4.3 Mil/uL (4.40-5.90); RED CELL DISTRIBUTION WIDTH 15.1 % (11.5-14.5); WHITE BLOOD COUNT 5.4 K/uL (4.8-10.8)
[2018-05-21 08:27] LABS: ALB/GLOB RATIO 1.1 (1.0-2.1); ALBUMIN 3.7 g/dL (3.5-5.0); ALT/SGPT 22 U/L (21-72); AST/SGOT 25 U/L (17-59); BLOOD UREA NITROGEN 9 mg/dL (9-20); CALCIUM 9.5 mg/dl (8.6-10.4); GFR NON-AFRICAN AMERICAN > 60
[2018-05-21] MEDS: Dorzolamide 2% Opht Sol 10ml OD SCH ×2 (09:23→17:41)
--- NOTE | 2018-05-21 13:33 | CT ---
CT maxillofacial History: Inability to chew. Comparison: None available. Technique: Multiple contiguous axial images were performed through the face without the use of intravenous contrast. Subsequently, sagittal and coronal reformatted images were obtained. This CT exam was performed using one or more of the following dose reduction techniques: Automated exposure control, adjustment of the mA and/or kV according to patient size, and/or use of iterative reconstruction technique. Findings: Mild mucosal thickening of the maxillary sinuses, sphenoid sinuses, ethmoid air cells, and frontal sinus. Mastoid air cells are preserved. Multiple dental caries noted. No evidence of acute displaced fracture. Orbital globes appear preserved. Postsurgical changes in the spine. Impression: Sinus mucosal disease as above.
--- NOTE | 2018-05-21 15:59 | CP.PCM.PN ---
Subjective - Date & Time of Evaluation Date of Evaluation: 05/21/18 Time of Evaluation: 15:58 - Subjective Subjective: CHIEF COMPLAINTS TODAY : patient has pain more on thepper molar teeth rather than thedelete temporomandibular joint as patient is able to chew ROS. HEENT : N. Resp : No cough, wheezing , or hemoptysis Cardio : No anginal CP, PND, orthopnea, palpitation GI : No abd.pain, n/v ,diarrhea or GI bleeding . ROLL EXAMINER : No headache, vertigo, focal deficit. Musculoskel : No joint swelling , Derm : No rash Psych : Normal affect. Ext : No swelling ,calf pain PE. Pt. is alert awake in no distress. V.S As noted in the chart Head ,ear nose,throat and eyes : Normal. Tenderness on the left side of the face with superficial wound Neck : Supple with normal carotids. Lungs: Clear air entry. Tender left side of the chest Heart : S1 & S2 normal with S4. No murmur. Abd : Soft non tender with normal bowel sounds. Neuro : Moves all ext. with no localized deficit. Ext : No edema with intact pulses.Non tender calves right ankle shows open wound appears to be infected Derm : No rashes or decubitus ulcer. LABS/RADIOLOGY: The wound on the right ankle shows gram-positive and gram- negative organism. the organisms are staph aureus and Serratia The CT of the head shows a fracture of the lateral wall of the orbit the wound culture on right ankle shows staph aureus and marcena CT of the maxillofacial shows no evidence of fracture or dislocation of TM joint ASSESSMENT/PLAN : We will consult with the maxillofacial surgery.currently no maxillofac service is available in [facility] IV antibiotics and pain management Objective - Vital Signs/Intake and Output Vital Signs (last 24 hours): Temp Pulse Resp BP Pulse Ox 97.5 F L 61 20 104/55 L 100 05/21/18 08:00 05/21/18 08:00 05/21/18 08:00 05/21/18 08:00 05/21/18 08:00 - Medications Medications: Current Medications Clobetasol Propionate (Temovate 0.05% Ointment) 0.5 applic TOP BID [facility] Last Admin: 05/21/18 09:22 Dose: 0.5 applic Dorzolamide HCl (Trusopt) 0 ml OD BID [facility] Last Admin: 05/21/18 09:23 Dose: 1 drop Heparin Sodium (Porcine) (Heparin) 5,000 units SC Q12 [facility] Last Admin: 05/21/18 09:22 Dose: 5,000 units Ceftriaxone Sodium 1 gm/ (Sodium Chloride) 100 mls @ 100 mls/hr IVPB Q12H [facility] PRN Reason: Protocol Last Admin: 05/21/18 11:58 Dose: 100 mls/hr Vancomycin HCl 1 gm/ Sodium (Chloride) 200 mls @ 166.7 mls/hr IVPB Q24H [facility] PRN Reason: Protocol Last Admin: 05/20/18 17:28 Dose: 166.7 mls/hr Latanoprost (Xalatan Opht) 0 ml OS HS [facility] Last Admin: 05/20/18 21:42 Dose: Not Given Lidocaine (Lidoderm) 1 ea TD Q24H [facility] Last Admin: 05/20/18 19:56 Dose: 1 ea Oxycodone/Acetaminophen (Percocet 5/325 Mg Tab) 1 tab PO Q4H PRN PRN Reason: Pain, moderate (4-7) Stop: 05/21/18 20:35 Last Admin: 05/20/18 08:00 Dose: 1 tab Tamsulosin HCl (Flomax) 0.4 mg PO DAILY [facility] Last Admin: 05/21/18 09:22 Dose: 0.4 mg Timolol Maleate (Timoptic 0.5% Ophth Soln) 0 drop OD BID [facility] - Labs Labs: 05/21/18 07:49 05/21/18 07:49
[2018-05-21] MEDS: Vancomycin 1 GM in Sodium Chloride 0.9% 200 ML IVPB SCH (17:39)
[2018-05-21] MEDS: Lidocaine 5% Patch TD SCH (20:20)
[2018-05-21] MEDS: Latanoprost 2.5 ml Opht Soln OS SCH (21:37)
[2018-05-21] MEDS: Oxycodone/Acetaminophen 5/325 mg Tab PO PRN (21:41)
--- NOTE | 2018-05-21 23:13 | CP.PCM.PN ---
Subjective - Date & Time of Evaluation Date of Evaluation: 05/21/18 Time of Evaluation: 23:13 - Subjective Subjective: CHIEF COMPLAINTS TODAY : afebrile c/o Pain upper molar and lower molars on chewing multiple carious tooth +ve purulent drainage from incision site right ankle ROS. HEENT : N. Resp : No cough, wheezing , or hemoptysis Cardio : No anginal CP, PND, orthopnea, palpitation GI : No abd.pain, n/v ,diarrhea or GI bleeding . ACID TENDER : No headache, vertigo, focal deficit. Musculoskel : No joint swelling , Derm : MULTIPLE EXCORIATIONS LEFT-SIDED FORE HEAD,CUBITAL FOSSA, LEFT SHOULDER healing Psych : Normal affect. Ext : No swelling ,calf pain.RLE INCISION SITE MIDLINE PURULENT DRAINAGE. STS AROUND THE ANKLE RLE. PE. Pt. is alert awake in no distress. V.S As noted in the chart Head ,ear nose,throat and eyes : Normal. Tenderness on the left side of the face with superficial wound Neck : Supple with normal carotids. Lungs: Clear air entry. Tender left side of the chest Heart : S1 & S2 normal with S4. No murmur. Abd : Soft non tender with normal bowel sounds. Neuro : Moves all ext. with no localized deficit. Ext : No edema with intact pulses.Non tender calves .RIGHT ANKLE WITH MIDLINE INCISION RLE SMALL DEHISCENCE WITH PURULENT DRAINAGE. Derm : No rashes or decubitus ulcer.MULTIPLE EXCORIATIONS LEFT-SIDED FORE HEAD, CUBITAL FOSSA, LEFT SHOULDER healing. LABS/RADIOLOGY: WOUND CULTURE right ankle shows MSSA/SERRATIA MARSCENS S -CTX The CT of the head shows a fracture of the lateral wall of the orbit. RIGHT ANKLE X-RAY. SEVERE PERIARTICULAR SOFT TISSUE SWELLING MAY REPRESENT CELLULITIS. SOME FLUFFY PERIOSTEAL REACTION DISTAL TIBIA ?ACUTE ON CHRONIC OSTEOMYELITIS. DUPLEX VENOUS-VE FOR SUPERFICIAL OR DVT. CT MAXILLO/FASCIAL- DONE -P REPORT Objective - Vital Signs/Intake and Output Vital Signs (last 24 hours): Temp Pulse Resp BP Pulse Ox 98.4 F 75 20 126/65 100 05/21/18 15:00 05/21/18 15:00 05/21/18 15:00 05/21/18 15:00 05/21/18 15:00 - Medications Medications: Current Medications Clobetasol Propionate (Temovate 0.05% Ointment) 0.5 applic TOP BID [facility] Last Admin: 05/21/18 17:41 Dose: Not Given Dorzolamide HCl (Trusopt) 0 ml OD BID [facility] Last Admin: 05/21/18 17:41 Dose: Not Given Heparin Sodium (Porcine) (Heparin) 5,000 units SC Q12 [facility] Last Admin: 05/21/18 21:33 Dose: Not Given Ceftriaxone Sodium 1 gm/ (Sodium Chloride) 100 mls @ 100 mls/hr IVPB Q12H IRA PRN Reason: Protocol Last Admin: 05/21/18 11:58 Dose: 100 mls/hr Vancomycin HCl 1 gm/ Sodium (Chloride) 200 mls @ 166.7 mls/hr IVPB Q24H IRA PRN Reason: Protocol Last Admin: 05/21/18 17:39 Dose: 166.7 mls/hr Latanoprost (Xalatan Opht) 0 ml OS HS [facility] Last Admin: 05/21/18 21:37 Dose: 2.5 ml Lidocaine (Lidoderm) 1 ea TD Q24H [facility] Last Admin: 05/21/18 20:20 Dose: 1 ea Oxycodone/Acetaminophen (Percocet 5/325 Mg Tab) 1 tab PO Q4H PRN PRN Reason: Pain, moderate (4-7) Stop: 05/24/18 21:37 Last Admin: 05/21/18 21:41 Dose: 1 tab Tamsulosin HCl (Flomax) 0.4 mg PO DAILY [facility] Last Admin: 05/21/18 09:22 Dose: 0.4 mg Timolol Maleate (Timoptic 0.5% Ophth Soln) 0 drop OD BID [facility] Last Admin: 05/21/18 17:41 Dose: Not Given - Labs Labs: 05/21/18 07:49 05/21/18 07:49 Assessment and Plan (1) Syncope Status: Acute (2) Rib pain Status: Acute (3) Wound dehiscence, surgical Assessment & Plan: CONTINUE iv ROCEPHIN 1 G EVERY 12 HOURLY 05/18/18 CONTINUE iv VANCOMYCIN 1 G EVERY 24 HOURLY 05/17/18/ VANC TROUGH pRIOR TO THE DOSE IN AM AND KEEP BETWEEN 10 AND 20 Status: Acute (4) Cervical radiculopathy Status: Acute (5) GERD (gastroesophageal reflux disease) Status: Acute (6) HTN (hypertension) Status: Acute (7) BPH (benign prostatic hyperplasia) Status: Acute (8) Lumbar arthropathy Status: Acute (9) Jaw pain Assessment & Plan: AWAIT CT MAXILLO-FACIAL R/O FRACTURE/OR TMJ DISLOCATION VS TOOTH INFECTION. PT ON ABX . LISTERINE GARGLES TID. Status: Acute
[2018-05-22] MEDS: Oxycodone/Acetaminophen 5/325 mg Tab PO PRN (07:39)
[2018-05-22] MEDS: Dorzolamide 2% Opht Sol 10ml OD SCH ×2 (10:33→17:34)
--- NOTE | 2018-05-22 12:59 | CP.PCM.PN ---
Subjective - Date & Time of Evaluation Date of Evaluation: 05/22/18 Time of Evaluation: 12:58 - Subjective Subjective: CHIEF COMPLAINTS TODAY : patient has pain more on thepper molar teeth rather than thedelete temporomandibular joint as patient is able to chew ROS. HEENT : N. Resp : No cough, wheezing , or hemoptysis Cardio : No anginal CP, PND, orthopnea, palpitation GI : No abd.pain, n/v ,diarrhea or GI bleeding . 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 Musculoskel : No joint swelling , Derm : No rash Psych : Normal affect. Ext : No swelling ,calf pain PE. Pt. is alert awake in no distress. V.S As noted in the chart Head ,ear nose,throat and eyes : Normal. Tenderness on the left side of the face with superficial wound Neck : Supple with normal carotids. Lungs: Clear air entry. Tender left side of the chest Heart : S1 & S2 normal with S4. No murmur. Abd : Soft non tender with normal bowel sounds. Neuro : Moves all ext. with no localized deficit. Ext : No edema with intact pulses.Non tender calves right ankle shows open wound appears to be infected Derm : No rashes or decubitus ulcer. LABS/RADIOLOGY: The wound on the right ankle shows gram-positive and gram- negative organism. the organisms are staph aureus and Serratia The CT of the head shows a fracture of the lateral wall of the orbit the wound culture on right ankle shows staph aureus andSerratia mar. CT of the maxillofacial shows no evidence of fracture or dislocation of TM joint ASSESSMENT/PLAN : We will consult with the maxillofacial surgery.currently no maxillofac service is available in [facility] IV antibiotics and pain management Objective - Vital Signs/Intake and Output Vital Signs (last 24 hours): Temp Pulse Resp BP Pulse Ox 97.5 F L 57 L 20 104/59 L 100 05/22/18 07:00 05/22/18 07:00 05/22/18 07:00 05/22/18 07:00 05/22/18 07:00 - Medications Medications: Current Medications Clobetasol Propionate (Temovate 0.05% Ointment) 0.5 applic TOP BID [facility] Last Admin: 05/21/18 17:41 Dose: Not Given Dorzolamide HCl (Trusopt) 0 ml OD BID [facility] Last Admin: 05/22/18 10:33 Dose: 1 drop Ceftriaxone Sodium 1 gm/ (Sodium Chloride) 100 mls @ 100 mls/hr IVPB Q12H IRA PRN Reason: Protocol Last Admin: 05/22/18 01:04 Dose: 100 mls/hr Vancomycin HCl 1 gm/ Sodium (Chloride) 200 mls @ 166.7 mls/hr IVPB Q24H IRA PRN Reason: Protocol Last Admin: 05/21/18 17:39 Dose: 166.7 mls/hr Latanoprost (Xalatan Opht) 0 ml OS HS [facility] Last Admin: 05/21/18 21:37 Dose: 2.5 ml Lidocaine (Lidoderm) 1 ea TD Q24H [facility] Last Admin: 05/21/18 20:20 Dose: 1 ea Oxycodone/Acetaminophen (Percocet 5/325 Mg Tab) 1 tab PO Q4H PRN PRN Reason: Pain, moderate (4-7) Stop: 05/24/18 21:37 Last Admin: 05/22/18 07:39 Dose: 1 tab Tamsulosin HCl (Flomax) 0.4 mg PO DAILY [facility] Last Admin: 05/22/18 10:02 Dose: 0.4 mg Timolol Maleate (Timoptic 0.5% Ophth Soln) 0 drop OD BID [facility] Last Admin: 05/22/18 10:05 Dose: Not Given - Labs Labs: 05/21/18 07:49 05/21/18 07:49
[2018-05-22] MEDS: Vancomycin 1 GM in Sodium Chloride 0.9% 200 ML IVPB SCH (17:30)
--- NOTE | 2018-05-22 18:26 | CP.PCM.PN ---
Subjective - Date & Time of Evaluation Date of Evaluation: 05/22/18 Time of Evaluation: 18:26 - Subjective Subjective: CHIEF COMPLAINTS TODAY : afebrile c/o Pain upper molar and lower molars on chewing multiple carious tooth +ve purulent drainage from incision site right ankle case discussed ORTHO DR MALIN. TRIAL OF IV ANTIBIOTICS AND IF DRAINAGE DOES NO STOP WILL CONSIDER REMOVAL OF HARDWARE. ROS. HEENT : N. Resp : No cough, wheezing , or hemoptysis Cardio : No anginal CP, PND, orthopnea, palpitation GI : No abd.pain, n/v ,diarrhea or GI bleeding . 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 Musculoskel : No joint swelling , Derm : MULTIPLE EXCORIATIONS LEFT-SIDED FORE HEAD,CUBITAL FOSSA, LEFT SHOULDER healing Psych : Normal affect. Ext : No swelling ,calf pain.RLE INCISION SITE MIDLINE PURULENT DRAINAGE. STS AROUND THE ANKLE RLE. PE. Pt. is alert awake in no distress. V.S As noted in the chart Head ,ear nose,throat and eyes : Normal. Tenderness on the left side of the face with superficial wound Neck : Supple with normal carotids. Lungs: Clear air entry. Tender left side of the chest Heart : S1 & S2 normal with S4. No murmur. Abd : Soft non tender with normal bowel sounds. Neuro : Moves all ext. with no localized deficit. Ext : No edema with intact pulses.Non tender calves .RIGHT ANKLE WITH MIDLINE INCISION RLE SMALL DEHISCENCE WITH PURULENT DRAINAGE. Derm : No rashes or decubitus ulcer.MULTIPLE EXCORIATIONS LEFT-SIDED FORE HEAD, CUBITAL FOSSA, LEFT SHOULDER healing. LABS/RADIOLOGY: 05/22/18 vanco trough < 5.0 bun 9/creat 0.9 WOUND CULTURE right ankle shows MSSA/SERRATIA MARSCENS S -CTX The CT of the head shows a fracture of the lateral wall of the orbit. RIGHT ANKLE X-RAY. SEVERE PERIARTICULAR SOFT TISSUE SWELLING MAY REPRESENT CELLULITIS. SOME FLUFFY PERIOSTEAL REACTION DISTAL TIBIA ?ACUTE ON CHRONIC OSTEOMYELITIS. DUPLEX VENOUS-VE FOR SUPERFICIAL OR DVT. CT MAXILLO/FASCIAL- DONE -P REPORT Objective - Vital Signs/Intake and Output Vital Signs (last 24 hours): Temp Pulse Resp BP Pulse Ox 97.7 F 58 L 18 112/69 100 05/22/18 15:46 05/22/18 15:46 05/22/18 15:46 05/22/18 15:46 05/22/18 15:46 - Medications Medications: Current Medications Clobetasol Propionate (Temovate 0.05% Ointment) 0.5 applic TOP BID [facility] Last Admin: 05/22/18 17:35 Dose: Not Given Dorzolamide HCl (Trusopt) 0 ml OD BID [facility] Last Admin: 05/22/18 17:34 Dose: 1 drop Ceftriaxone Sodium 1 gm/ (Sodium Chloride) 100 mls @ 100 mls/hr IVPB Q12H IRA PRN Reason: Protocol Last Admin: 05/22/18 13:02 Dose: 100 mls/hr Vancomycin HCl 1 gm/ Sodium (Chloride) 200 mls @ 166.7 mls/hr IVPB Q24H IRA PRN Reason: Protocol Last Admin: 05/22/18 17:30 Dose: 166.7 mls/hr Latanoprost (Xalatan Opht) 0 ml OS HS [facility] Last Admin: 05/21/18 21:37 Dose: 2.5 ml Lidocaine (Lidoderm) 1 ea TD Q24H [facility] Last Admin: 05/21/18 20:20 Dose: 1 ea Oxycodone/Acetaminophen (Percocet 5/325 Mg Tab) 1 tab PO Q4H PRN PRN Reason: Pain, moderate (4-7) Stop: 05/24/18 21:37 Last Admin: 05/22/18 07:39 Dose: 1 tab Tamsulosin HCl (Flomax) 0.4 mg PO DAILY [facility] Last Admin: 05/22/18 10:02 Dose: 0.4 mg Timolol Maleate (Timoptic 0.5% Ophth Soln) 0 drop OD BID [facility] Last Admin: 05/22/18 17:33 Dose: Not Given - Labs Labs: 05/21/18 07:49 05/21/18 07:49 Assessment and Plan (1) Syncope Status: Acute (2) Rib pain Status: Acute (3) Wound dehiscence, surgical Assessment & Plan: CONTINUE iv ROCEPHIN 1 G EVERY 12 HOURLY 05/18/18 CONTINUE iv VANCOMYCIN 1 G EVERY 24 HOURLY 05/17/18/ VANC TROUGH 05/22/18 < 5.0. Increase IV vancomycin 1 g every 12 hourly.05/22/[address] Case discussed with orthopedic DR MALIN. Trial of antibiotics before deciding to remove hardware.PATIENT VERY CONCERNED WHETHER HE'LL BE ABLE TO WALK AFTER REMOVAL OF THE HARDWARE/AND SCREWS/AND PLATES Patient to get PICC line for long-term antibiotics. Patient will need 6 weeks of iv antibiotics for osteomyelitis left distal tibia. Status: Acute (4) Cervical radiculopathy Status: Acute (5) GERD (gastroesophageal reflux disease) Status: Acute (6) HTN (hypertension) Status: Acute (7) BPH (benign prostatic hyperplasia) Status: Acute (8) Lumbar arthropathy Status: Acute (9) Jaw pain Assessment & Plan: ct maxillofacial noted . no acute fracture. multiple dental caries. will check 2D ECHO R/O SBE CASE DISCUSSED WITH ATTENDING. Status: Acute
[2018-05-22] MEDS: Lidocaine 5% Patch TD SCH (20:07)
[2018-05-22] MEDS: Latanoprost 2.5 ml Opht Soln OS SCH (21:54)
[2018-05-23] MEDS: Vancomycin 1 gm/NS 200 ml 1 GM/200 ML BAG IVPB SCH ×3 (00:41→22:23)
[2018-05-23] MEDS: Oxycodone/Acetaminophen 5/325 mg Tab PO PRN ×2 (02:03→16:50)
[2018-05-23] MEDS: Dorzolamide 2% Opht Sol 10ml OD SCH ×2 (10:07→17:51)
--- NOTE | 2018-05-23 10:42 | RAD ---
HISTORY: PICC Insertion COMPARISON: Chest x-ray performed 03/14/17 TECHNIQUE: Chest, one view. FINDINGS: Right-sided PICC extends expected location of the SVC. LUNGS: Mild atelectasis, left lung base. Increased lucencies especially within the bilateral upper lung mena compatible with underlying emphysema. Please note that chest x-ray has limited sensitivity for the detection of pulmonary masses. PLEURA: No significant pleural effusion identified. No definite pneumothorax . CARDIOVASCULAR: Heart size appears within normal limits. Atherosclerotic calcifications of the aorta. OSSEOUS STRUCTURES: Partially imaged cervical fusion hardware. VISUALIZED UPPER ABDOMEN: Unremarkable. OTHER FINDINGS: None. IMPRESSION: Right-sided PICC extends to the expected location of the SVC.
[2018-05-23 11:11] LABS: BASO % 0.9 % (0.0-2.0); EOS # 0.5 K/uL (0.0-0.7); EOS % 8.4 % (0.0-4.0); HEMOGLOBIN 13.4 g/dL (12.0-18.0); LYMPH # 0.9 K/uL (1.0-4.3); LYMPH % 16.2 % (20.0-40.0); MEAN CORPUSCULAR HGB CONC 33.7 g/dL (33.0-37.0); MEAN PLATELET VOLUME 7.3 fL (7.2-11.7); MONO # 0.5 K/uL (0.0-0.8); MONO % 8.6 % (0.0-10.0); NEUT # 3.6 K/uL (1.8-7.0); NEUT % 65.9 % (50.0-75.0); NRBC % 0.2 % (0.0-2.0); RBC 4.47 Mil/uL (4.40-5.90); RED CELL DISTRIBUTION WIDTH 15.2 % (11.5-14.5); WHITE BLOOD COUNT 5.4 K/uL (4.8-10.8)
[2018-05-23 11:14] LABS: ALB/GLOB RATIO 1.1 (1.0-2.1); ALBUMIN 3.8 g/dL (3.5-5.0); ALT/SGPT 25 U/L (21-72); AST/SGOT 27 U/L (17-59); BLOOD UREA NITROGEN 10 mg/dL (9-20); CALCIUM 9.5 mg/dl (8.6-10.4); GFR NON-AFRICAN AMERICAN > 60
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
--- NOTE | 2018-05-23 14:32 | CP.PCM.PN ---
Subjective - Date & Time of Evaluation Date of Evaluation: 05/23/18 Time of Evaluation: 14:32 - Subjective Subjective: CHIEF COMPLAINTS TODAY : afebrile C/O HEADACHE. DECREASING EDEMA OF THE ANKLE +ve purulent drainage from incision site right ankle. LT EYE . CLEAR CONJUNCTIVA. NO DRAINAGE [facility] RECORDS REVIEWED PER PMD. ROS. HEENT : N. Resp : No cough, wheezing , or hemoptysis Cardio : No anginal CP, PND, orthopnea, palpitation GI : No abd.pain, n/v ,diarrhea or GI bleeding . 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 Musculoskel : No joint swelling , Derm : MULTIPLE EXCORIATIONS LEFT-SIDED FORE HEAD,CUBITAL FOSSA, LEFT SHOULDER healing Psych : Normal affect. Ext : No swelling ,calf pain.RLE INCISION SITE MIDLINE PURULENT DRAINAGE. STS AROUND THE ANKLE RLE. PE. Pt. is alert awake in no distress. V.S As noted in the chart Head ,ear nose,throat and eyes : Normal. Tenderness on the left side of the face with superficial wound Neck : Supple with normal carotids. Lungs: Clear air entry. Tender left side of the chest Heart : S1 & S2 normal with S4. No murmur. Abd : Soft non tender with normal bowel sounds. Neuro : Moves all ext. with no localized deficit. Ext : No edema with intact pulses.Non tender calves .RIGHT ANKLE WITH MIDLINE INCISION RLE SMALL DEHISCENCE WITH PURULENT DRAINAGE. Derm : No rashes or decubitus ulcer.MULTIPLE EXCORIATIONS LEFT-SIDED FORE HEAD, CUBITAL FOSSA, LEFT SHOULDER healing. LABS/RADIOLOGY: 05/22/18 vanco trough < 5.0 bun 9/creat 0.9 WOUND CULTURE right ankle shows MSSA/SERRATIA MARSCENS S -CTX The CT of the head shows a fracture of the lateral wall of the orbit. RIGHT ANKLE X-RAY. SEVERE PERIARTICULAR SOFT TISSUE SWELLING MAY REPRESENT CELLULITIS. SOME FLUFFY PERIOSTEAL REACTION DISTAL TIBIA ?ACUTE ON CHRONIC OSTEOMYELITIS. DUPLEX VENOUS-VE FOR SUPERFICIAL OR DVT. CT MAXILLO/FASCIAL-NOTED. Objective - Vital Signs/Intake and Output Vital Signs (last 24 hours): Temp Pulse Resp BP Pulse Ox 97.5 F L 66 20 96/61 L 98 05/23/18 07:00 05/23/18 07:00 05/23/18 07:00 05/23/18 07:00 05/23/18 07:00 Intake and Output: 05/23/18 05/23/18 06:59 18:59 Intake Total 1320 300 Output Total 1300 575 Balance 20 -275 - Medications Medications: Current Medications Clobetasol Propionate (Temovate 0.05% Ointment) 0.5 applic TOP BID [facility] Last Admin: 05/23/18 10:07 Dose: 0.5 applic Dorzolamide HCl (Trusopt) 0 ml OD BID [facility] Last Admin: 05/23/18 10:07 Dose: 1 drop Ceftriaxone Sodium 1 gm/ (Sodium Chloride) 100 mls @ 100 mls/hr IVPB Q12H IRA PRN Reason: Protocol Last Admin: 05/23/18 13:20 Dose: 100 mls/hr Vancomycin/Sodium Chloride (Vancomycin 1 Gm/Ns 200 Ml) 1 gm in 200 mls @ 166.6 mls/hr IVPB Q12H IRA PRN Reason: Protocol Stop: 05/27/18 23:01 Last Admin: 05/23/18 11:32 Dose: 166.6 mls/hr Latanoprost (Xalatan Opht) 0 ml OS HS [facility] Last Admin: 05/22/18 21:54 Dose: 2.5 ml Lidocaine (Lidoderm) 1 ea TD Q24H [facility] Last Admin: 05/22/18 20:07 Dose: 1 ea Oxycodone/Acetaminophen (Percocet 5/325 Mg Tab) 1 tab PO Q4H PRN PRN Reason: Pain, moderate (4-7) Stop: 05/24/18 21:37 Last Admin: 05/23/18 02:03 Dose: 1 tab Tamsulosin HCl (Flomax) 0.4 mg PO DAILY [facility] Last Admin: 05/23/18 10:06 Dose: 0.4 mg Timolol Maleate (Timoptic 0.5% Ophth Soln) 0 drop OD BID [facility] Last Admin: 05/23/18 10:07 Dose: Not Given - Labs Labs: 05/23/18 10:53 05/23/18 10:53 Assessment and Plan (1) Syncope Status: Acute (2) Rib pain Status: Acute (3) Wound dehiscence, surgical Assessment & Plan: CONTINUE iv ROCEPHIN 1 G EVERY 12 HOURLY 05/18/18 CONTINUE iv VANCOMYCIN 1 G EVERY 24 HOURLY 05/17/18/ VANC TROUGH 05/22/18 < 5.0. Increase IV vancomycin 1 g every 12 hourly.05/22/18 Case discussed with orthopedic DR MALIN. Trial of antibiotics before deciding to remove hardware.PATIENT VERY CONCERNED WHETHER HE'LL BE ABLE TO WALK AFTER REMOVAL OF THE HARDWARE/AND SCREWS/AND PLATES Patient GOT PICC line for long-term antibiotics. AGREES FOR ZITA . PATIENT WILL NEED TO GET IV ROCEPHIN 2 G ONCE DAILY X 6WKS IV VANCOMYCIN 1 G iv PIGGYBACK EVERY 12 HOURLY X 4 WKS-- F/U BY LEVAQUIN 500MG PO OD DAILY X 2WKS. F/U VANCO TROUGH WEEKLY AND KEEP BETWEEN 10 AND 20. F/U CBC WITH DIFFERENTIAL, ,BMP, ESR, CRP WEEKLY. LWC PER ORTHO. Status: Acute (4) Cervical radiculopathy Status: Acute (5) GERD (gastroesophageal reflux disease) Status: Acute (6) HTN (hypertension) Status: Acute (7) BPH (benign prostatic hyperplasia) Status: Acute (8) Lumbar arthropathy Status: Acute (9) Jaw pain Status: Acute
[2018-05-23] MEDS: Lidocaine 5% Patch TD SCH (19:50)
[2018-05-23] MEDS: Latanoprost 2.5 ml Opht Soln OS SCH (22:24)
[2018-05-24] MEDS: Oxycodone/Acetaminophen 5/325 mg Tab PO PRN ×2 (08:20→18:46)
[2018-05-24] MEDS: Dorzolamide 2% Opht Sol 10ml OD SCH ×2 (09:22→17:19)
[2018-05-24] MEDS: Vancomycin 1 gm/NS 200 ml 1 GM/200 ML BAG IVPB SCH ×2 (10:50→23:09)
--- NOTE | 2018-05-24 12:15 | CP.PCM.PN ---
Subjective - Date & Time of Evaluation Date of Evaluation: 05/24/18 Time of Evaluation: 12:15 - Subjective Subjective: CHIEF COMPLAINTS TODAY : afebrile C/O MILD HEADACHE LEFT SIDE DECREASING EDEMA OF THE RT ANKLE DECREASED purulent drainage from incision site right ankle. ROS. HEENT : N. Resp : No cough, wheezing , or hemoptysis Cardio : No anginal CP, PND, orthopnea, palpitation GI : No abd.pain, n/v ,diarrhea or GI bleeding . DOCUMENTATION LEAD : No headache, vertigo, focal deficit. Musculoskel : No joint swelling , Derm : MULTIPLE EXCORIATIONS LEFT-SIDED FORE HEAD,CUBITAL FOSSA, LEFT SHOULDER healing Psych : Normal affect. Ext : No swelling ,calf pain.RLE INCISION SITE MIDLINE PURULENT DRAINAGE. STS AROUND THE ANKLE RLE. PE. Pt. is alert awake in no distress. V.S As noted in the chart Head ,ear nose,throat and eyes : Normal. Tenderness on the left side of the face with superficial wound Neck : Supple with normal carotids. Lungs: Clear air entry. Tender left side of the chest Heart : S1 & S2 normal with S4. No murmur. Abd : Soft non tender with normal bowel sounds. Neuro : Moves all ext. with no localized deficit. Ext : No edema with intact pulses.Non tender calves .RIGHT ANKLE WITH MIDLINE INCISION RLE SMALL DEHISCENCE WITH PURULENT DRAINAGE. Derm : No rashes or decubitus ulcer.MULTIPLE EXCORIATIONS LEFT-SIDED FORE HEAD, CUBITAL FOSSA, LEFT SHOULDER healing. LABS/RADIOLOGY: 05/22/18 vanco trough < 5.0 bun 9/creat 0.9 WOUND CULTURE right ankle shows MSSA/SERRATIA MARSCENS S -CTX The CT of the head shows a fracture of the lateral wall of the orbit. RIGHT ANKLE X-RAY. SEVERE PERIARTICULAR SOFT TISSUE SWELLING MAY REPRESENT CELLULITIS. SOME FLUFFY PERIOSTEAL REACTION DISTAL TIBIA ?ACUTE ON CHRONIC OSTEOMYELITIS. DUPLEX VENOUS-VE FOR SUPERFICIAL OR DVT. CT MAXILLO/FASCIAL-NOTED. Objective - Vital Signs/Intake and Output Vital Signs (last 24 hours): Temp Pulse Resp BP Pulse Ox 98.2 F 61 20 100/58 L 98 05/24/18 07:10 05/24/18 07:10 05/24/18 07:10 05/24/18 07:10 05/24/18 07:10 Intake and Output: 09/12/18 09/12/18 06:59 18:59 Intake Total 800 Output Total 900 Balance -100 - Medications Medications: Current Medications Clobetasol Propionate (Temovate 0.05% Ointment) 0.5 applic TOP BID [facility] Last Admin: 05/24/18 09:22 Dose: 0.5 applic Dorzolamide HCl (Trusopt) 0 ml OD BID [facility] Last Admin: 05/24/18 09:22 Dose: 1 drop Ceftriaxone Sodium 1 gm/ (Sodium Chloride) 100 mls @ 100 mls/hr IVPB Q12H [facility] PRN Reason: Protocol Last Admin: 05/24/18 00:20 Dose: 100 mls/hr Vancomycin/Sodium Chloride (Vancomycin 1 Gm/Ns 200 Ml) 1 gm in 200 mls @ 166.6 mls/hr IVPB Q12H [facility] PRN Reason: Protocol Stop: 05/27/18 23:01 Last Admin: 05/24/18 10:50 Dose: 166.6 mls/hr Latanoprost (Xalatan Opht) 0 ml OS HS [facility] Last Admin: 05/23/18 22:24 Dose: 2.5 ml Lidocaine (Lidoderm) 1 ea TD Q24H [facility] Last Admin: 05/23/18 19:50 Dose: 1 ea Oxycodone/Acetaminophen (Percocet 5/325 Mg Tab) 1 tab PO Q4H PRN PRN Reason: Pain, moderate (4-7) Stop: 05/24/18 21:37 Last Admin: 05/24/18 08:20 Dose: 1 tab Tamsulosin HCl (Flomax) 0.4 mg PO DAILY [facility] Last Admin: 05/24/18 09:22 Dose: 0.4 mg Timolol Maleate (Timoptic 0.5% Ophth Soln) 0 drop OD BID [facility] Last Admin: 05/24/18 09:23 Dose: Not Given - Labs Labs: 05/23/18 10:53 05/23/18 10:53 Assessment and Plan (1) Osteomyelitis of right tibia Assessment & Plan: Patient GOT PICC line for long-term antibiotics. AWAITING ZITA ARRANGEMENTS.. PATIENT WILL NEED TO GET IV ROCEPHIN 2 G ONCE DAILY X 6WKS IV VANCOMYCIN 1 G iv PIGGYBACK EVERY 12 HOURLY X 4 WKS-- F/U BY LEVAQUIN 500MG PO OD DAILY X 2WKS. F/U VANCO TROUGH WEEKLY AND KEEP BETWEEN 10 AND 20. F/U CBC WITH DIFFERENTIAL, ,BMP, ESR, CRP WEEKLY. LWC PER ORTHO. Status: Acute (2) Wound dehiscence, surgical Status: Acute (3) Syncope Status: Acute (4) Rib pain Status: Acute (5) Cervical radiculopathy Status: Acute (6) GERD (gastroesophageal reflux disease) Status: Acute (7) HTN (hypertension) Status: Acute (8) BPH (benign prostatic hyperplasia) Status: Acute (9) Lumbar arthropathy Status: Acute (10) Jaw pain Status: Acute
--- NOTE | 2018-05-24 14:05 | CP.PCM.PN ---
Subjective - Date & Time of Evaluation Date of Evaluation: 05/24/18 Time of Evaluation: 14:04 - Subjective Subjective: AFTER HEARING PROS AND CONS OF HOME IV AB PT HAS CHANGED HIS MIND AND WANTS TO GO TO REHAB FOR IV AB AND WOUND CARE PAIN IN [place] P/E SAME Objective - Vital Signs/Intake and Output Vital Signs (last 24 hours): Temp Pulse Resp BP Pulse Ox 98.2 F 61 20 100/58 L 98 05/24/18 07:10 05/24/18 07:10 05/24/18 07:10 05/24/18 07:10 05/24/18 07:10 Intake and Output: 05/24/18 05/24/18 11:59 23:59 Intake Total 100 Output Total 900 Balance -800 - Medications Medications: Current Medications Clobetasol Propionate (Temovate 0.05% Ointment) 0.5 applic TOP BID [facility] Last Admin: 05/24/18 09:22 Dose: 0.5 applic Dorzolamide HCl (Trusopt) 0 ml OD BID [facility] Last Admin: 05/24/18 09:22 Dose: 1 drop Ceftriaxone Sodium 1 gm/ (Sodium Chloride) 100 mls @ 100 mls/hr IVPB Q12H [facility] PRN Reason: Protocol Last Admin: 05/24/18 13:17 Dose: 100 mls/hr Vancomycin/Sodium Chloride (Vancomycin 1 Gm/Ns 200 Ml) 1 gm in 200 mls @ 166.6 mls/hr IVPB Q12H [facility] PRN Reason: Protocol Stop: 05/27/18 23:01 Last Admin: 05/24/18 10:50 Dose: 166.6 mls/hr Latanoprost (Xalatan Opht) 0 ml OS HS [facility] Last Admin: 05/23/18 22:24 Dose: 2.5 ml Lidocaine (Lidoderm) 1 ea TD Q24H [facility] Last Admin: 05/23/18 19:50 Dose: 1 ea Oxycodone/Acetaminophen (Percocet 5/325 Mg Tab) 1 tab PO Q4H PRN PRN Reason: Pain, moderate (4-7) Stop: 05/24/18 21:37 Last Admin: 05/24/18 08:20 Dose: 1 tab Tamsulosin HCl (Flomax) 0.4 mg PO DAILY [facility] Last Admin: 09/12/18 09:22 Dose: 0.4 mg Timolol Maleate (Timoptic 0.5% Ophth Soln) 0 drop OD BID [facility] Last Admin: 05/24/18 09:23 Dose: Not Given - Labs Labs: 05/23/18 10:53 05/23/18 10:53
[2018-05-24] MEDS: Lidocaine 5% Patch TD SCH (20:15)
[2018-05-24] MEDS: Latanoprost 2.5 ml Opht Soln OS SCH (21:24)
--- NOTE | 2018-05-24 22:30 | CARD ---
APPROVED REPORT Date of service: 05/24/2018 EXAM: Two-dimensional and M-mode echocardiogram with Doppler and color Doppler. Other Information Quality : LimitedRhythm : NSR INDICATION Dizziness and Vertigo Infection:Rule out subacute bacterial endocarditis Syncope RISK FACTORS Hypertension 2D DIMENSIONS IVSd0.8 (0.7-1.1cm)LVDd3.8 (3.9-5.9cm) PWd0.7 (0.7-1.1cm)LVDs2.4 (2.5-4.0cm) FS (%) 37.3 %LVEF (%)68.0 (>50%) M-Mode DIMENSIONS Left Atrium (MM)1.80 (2.5-4.0cm)IVSd0.77 (0.7-1.1cm) Aortic Root3.05 (2.2-3.7cm)LVDd4.58 (4.0-5.6cm) Aortic Cusp Exc.1.55 (1.5-2.0cm)PWd0.69 (0.7-1.1cm) FS (%) 32 %LVDs3.14 (2.0-3.8cm) LVEF (%)59 (>50%) Mitral Valve MV E Rozljbuq91.2cm/sMV A Abtktchb70.8cm/sE/A ratio1.1 TDI E/Lateral E'0.0E/Medial E'0.0 Tricuspid Valve TR Peak [id number]/sTR Peak Gr.[id number] LEFT VENTRICLE The left ventricle is normal size. There is normal left ventricular wall thickness. Left ventricle systolic function is normal. The Ejection Fraction is 60-65%. There is normal LV segmental wall motion. The left ventricular diastolic function is normal. There is no ventricular septal defect visualized. RIGHT VENTRICLE The right ventricle is normal size. The right ventricular systolic function is normal. ATRIA The left atrium size is normal. The right atrium size is normal. AORTIC VALVE The aortic valve is not well visualized. No aortic regurgitation is present. There is no aortic valvular stenosis. MITRAL VALVE The mitral valve is normal in structure. There is no evidence of mitral valve prolapse. There is no mitral valve regurgitation noted. TRICUSPID VALVE The tricuspid valve is normal in structure. There is trace tricuspid regurgitation. Right ventricular systolic pressure is estimated at less than 30 mmHg. There is no pulmonary hypertension. PULMONIC VALVE The pulmonic valve is not well visualized. There is no pulmonic valvular regurgitation. GREAT VESSELS The aortic root is normal in size. The ascending aorta is normal in size. The IVC is dilated. PERICARDIAL EFFUSION There is no pericardial effusion. <Conclusion> Left ventricle systolic function is normal. The Ejection Fraction is 60-65%. The left ventricular diastolic function is normal. Suboptimal, consider QUINN to R/O vegatations
[2018-05-25] MEDS: Dorzolamide 2% Opht Sol 10ml OD SCH ×2 (09:13→17:32)
[2018-05-25] MEDS: Vancomycin 1 gm/NS 200 ml 1 GM/200 ML BAG IVPB SCH (11:04)
--- NOTE | 2018-05-25 14:07 | CP.PCM.PN ---
Subjective - Date & Time of Evaluation Date of Evaluation: 05/25/18 Time of Evaluation: 14:06 - Subjective Subjective: patient clinically improving with decreased swelling of the right ankle. Patient has less headache and no visual disturbance. Rest of the physical examination is normal. Patient for rehab for IV antibiotics. Objective - Vital Signs/Intake and Output Vital Signs (last 24 hours): Temp Pulse Resp BP Pulse Ox 98.3 F 60 18 101/70 99 05/25/18 08:35 05/25/18 08:35 05/25/18 08:35 05/25/18 08:35 05/25/18 08:35 Intake and Output: 05/25/18 05/25/18 11:59 23:59 Intake Total 550 Output Total 1225 Balance -675 - Medications Medications: Current Medications Clobetasol Propionate (Temovate 0.05% Ointment) 0.5 applic TOP BID [facility] Last Admin: 05/25/18 09:12 Dose: 0.5 applic Dorzolamide HCl (Trusopt) 0 ml OD BID [facility] Last Admin: 05/25/18 09:13 Dose: 1 drop Ceftriaxone Sodium 1 gm/ (Sodium Chloride) 100 mls @ 100 mls/hr IVPB Q12H [facility] PRN Reason: Protocol Last Admin: 05/25/18 13:26 Dose: 100 mls/hr Vancomycin/Sodium Chloride (Vancomycin 1 Gm/Ns 200 Ml) 1 gm in 200 mls @ 166.6 mls/hr IVPB Q12H [facility] PRN Reason: Protocol Stop: 05/27/18 23:01 Last Admin: 05/25/18 11:04 Dose: 166.6 mls/hr Latanoprost (Xalatan Opht) 0 ml OS HS [facility] Last Admin: 05/24/18 21:24 Dose: 2.5 ml Lidocaine (Lidoderm) 1 ea TD Q24H [facility] Last Admin: 05/24/18 20:15 Dose: 1 ea Tamsulosin HCl (Flomax) 0.4 mg PO DAILY [facility] Last Admin: 05/25/18 09:12 Dose: 0.4 mg Timolol Maleate (Timoptic 0.5% Ophth Soln) 0 drop OD BID [facility] Last Admin: 05/25/18 09:15 Dose: Not Given - Labs Labs: 05/23/18 10:53 05/23/18 10:53
--- NOTE | 2018-05-25 14:21 | CP.PCM.PN ---
Subjective - Date & Time of Evaluation Date of Evaluation: 05/25/18 Time of Evaluation: 14:21 - Subjective Subjective: CHIEF COMPLAINTS TODAY : afebrile FEELING BETTER DECREASING EDEMA OF THE RT ANKLE DRESSING IN PLACE. ROS. HEENT : N. Resp : No cough, wheezing , or hemoptysis Cardio : No anginal CP, PND, orthopnea, palpitation GI : No abd.pain, n/v ,diarrhea or GI bleeding . LUMBER DRIVER : No headache, vertigo, focal deficit. Musculoskel : No joint swelling , Derm : MULTIPLE EXCORIATIONS LEFT-SIDED FORE HEAD,CUBITAL FOSSA, LEFT SHOULDER healing Psych : Normal affect. Ext : No swelling ,calf pain.RLE INCISION SITE MIDLINE PURULENT DRAINAGE. STS AROUND THE ANKLE RLE. PE. Pt. is alert awake in no distress. V.S As noted in the chart Head ,ear nose,throat and eyes : Normal. Tenderness on the left side of the face with superficial wound Neck : Supple with normal carotids. Lungs: Clear air entry. Tender left side of the chest Heart : S1 & S2 normal with S4. No murmur. Abd : Soft non tender with normal bowel sounds. Neuro : Moves all ext. with no localized deficit. Ext : No edema with intact pulses.Non tender calves .RIGHT ANKLE WITH MIDLINE INCISION RLE SMALL DEHISCENCE WITH LESS DRAINAGE. Derm : No rashes or decubitus ulcer.MULTIPLE EXCORIATIONS LEFT-SIDED FORE HEAD, CUBITAL FOSSA, LEFT SHOULDER healing. LABS/RADIOLOGY: 05/22/18 vanco trough < 5.0 bun 9/creat 0.9 WOUND CULTURE right ankle shows MSSA/SERRATIA MARSCENS S -CTX The CT of the head shows a fracture of the lateral wall of the orbit. RIGHT ANKLE X-RAY. SEVERE PERIARTICULAR SOFT TISSUE SWELLING MAY REPRESENT CELLULITIS. SOME FLUFFY PERIOSTEAL REACTION DISTAL TIBIA ?ACUTE ON CHRONIC OSTEOMYELITIS. DUPLEX VENOUS-VE FOR SUPERFICIAL OR DVT. CT MAXILLO/FASCIAL-NOTED. Objective - Vital Signs/Intake and Output Vital Signs (last 24 hours): Temp Pulse Resp BP Pulse Ox 98.3 F 60 18 101/70 99 05/25/18 08:35 05/25/18 08:35 05/25/18 08:35 05/25/18 08:35 05/25/18 08:35 Intake and Output: 05/25/18 05/25/18 06:59 18:59 Intake Total 1350 Output Total 1650 275 Balance -300 -275 - Medications Medications: Current Medications Clobetasol Propionate (Temovate 0.05% Ointment) 0.5 applic TOP BID [facility] Last Admin: 05/25/18 09:12 Dose: 0.5 applic Dorzolamide HCl (Trusopt) 0 ml OD BID [facility] Last Admin: 05/25/18 09:13 Dose: 1 drop Ceftriaxone Sodium 1 gm/ (Sodium Chloride) 100 mls @ 100 mls/hr IVPB Q12H [facility] PRN Reason: Protocol Last Admin: 05/25/18 13:26 Dose: 100 mls/hr Vancomycin/Sodium Chloride (Vancomycin 1 Gm/Ns 200 Ml) 1 gm in 200 mls @ 166.6 mls/hr IVPB Q12H [facility] PRN Reason: Protocol Stop: 05/27/18 23:01 Last Admin: 05/25/18 11:04 Dose: 166.6 mls/hr Latanoprost (Xalatan Opht) 0 ml OS HS [facility] Last Admin: 05/24/18 21:24 Dose: 2.5 ml Lidocaine (Lidoderm) 1 ea TD Q24H [facility] Last Admin: 05/24/18 20:15 Dose: 1 ea Tamsulosin HCl (Flomax) 0.4 mg PO DAILY [facility] Last Admin: 05/25/18 09:12 Dose: 0.4 mg Timolol Maleate (Timoptic 0.5% Ophth Soln) 0 drop OD BID [facility] Last Admin: 05/25/18 09:15 Dose: Not Given - Labs Labs: 05/23/18 10:53 05/23/18 10:53 Assessment and Plan (1) Osteomyelitis of right tibia Assessment & Plan: Patient GOT PICC line for long-term antibiotics. FOR [facility]ITA [facility] TODAY. PATIENT WILL NEED TO GET IV ROCEPHIN 2 G ONCE DAILY X 6WKS IV VANCOMYCIN 1 G iv PIGGYBACK EVERY 12 HOURLY X 4 WKS-- F/U BY LEVAQUIN 500MG PO OD DAILY X 2WKS. F/U VANCO TROUGH WEEKLY AND KEEP BETWEEN 10 AND 20. F/U CBC WITH DIFFERENTIAL, ,BMP, ESR, CRP WEEKLY. LWC PER ORTHO. F/U ORTHO IN 2WEEKS OPD Status: Acute (2) Wound dehiscence, surgical Assessment & Plan: IMPROVING EDEMA/STS. CPMAND IV ABX. Status: Acute (3) Syncope Status: Acute (4) Rib pain Status: Acute (5) Cervical radiculopathy Status: Acute (6) GERD (gastroesophageal reflux disease) Status: Acute (7) HTN (hypertension) Status: Acute (8) BPH (benign prostatic hyperplasia) Status: Acute (9) Lumbar arthropathy Status: Acute (10) Jaw pain Status: Acute
--- NOTE | 2018-05-25 15:59 | CP.PCM.PN ---
Subjective - Date & Time of Evaluation Date of Evaluation: 05/25/18 Time of Evaluation: 15:59 - Subjective Subjective: PATIENT SEEN AND EXAMINED AT THE BEDSIDE Objective - Vital Signs/Intake and Output Vital Signs (last 24 hours): Temp Pulse Resp BP Pulse Ox 98.3 F 60 18 101/70 99 05/25/18 08:35 05/25/18 08:35 05/25/18 08:35 05/25/18 08:35 05/25/18 08:35 Intake and Output: 05/25/18 05/25/18 06:59 18:59 Intake Total 1350 Output Total 1650 275 Balance -300 -275 - Medications Medications: Current Medications Clobetasol Propionate (Temovate 0.05% Ointment) 0.5 applic TOP BID [facility] Last Admin: 05/25/18 09:12 Dose: 0.5 applic Dorzolamide HCl (Trusopt) 0 ml OD BID [facility] Last Admin: 05/25/18 09:13 Dose: 1 drop Ceftriaxone Sodium 1 gm/ (Sodium Chloride) 100 mls @ 100 mls/hr IVPB Q12H [facility] PRN Reason: Protocol Last Admin: 05/25/18 13:26 Dose: 100 mls/hr Vancomycin/Sodium Chloride (Vancomycin 1 Gm/Ns 200 Ml) 1 gm in 200 mls @ 166.6 mls/hr IVPB Q12H [facility] PRN Reason: Protocol Stop: 05/27/18 23:01 Last Admin: 05/25/18 11:04 Dose: 166.6 mls/hr Latanoprost (Xalatan Opht) 0 ml OS HS [facility] Last Admin: 05/24/18 21:24 Dose: 2.5 ml Lidocaine (Lidoderm) 1 ea TD Q24H [facility] Last Admin: 05/24/18 20:15 Dose: 1 ea Tamsulosin HCl (Flomax) 0.4 mg PO DAILY [facility] Last Admin: 05/25/18 09:12 Dose: 0.4 mg Timolol Maleate (Timoptic 0.5% Ophth Soln) 0 drop OD BID [facility] Last Admin: 05/25/18 09:15 Dose: Not Given - Labs Labs: 05/23/18 10:53 05/23/18 10:53 Assessment and Plan - Assessment and Plan (Free Text) Assessment: PLACE UNDER THE SERVICE OF DR ALLAN AT [facility] ---CALL FOR ADMITTING ORDER FOLLOW UP WITH DR ZAVALA ---CALL FOR APPOINTMENT CONTINUE HOME MEDICATION NEW PRESCRIPTION GIVEN ROCEPHIN 2 G IVPB DAILY FOR 6 WEEKS VANCO 1 G IVPB D12H FOR 4 WEEKS F/U WITH PO LEVAQUIN 500 MG DAILY FOR 2 WEEKS F/U VANCO TROUGH WEEKLY AND KEEP BETWEEN 10-20 F/U CBC WITH DIFFERENTIAL BMP ESR CRP WEEKLY SEND THE RESULT TO DR ZAVALA OFFICE [facility]IV[facility]ER[facility] AND FACILITY PROTOCOL PER ORTHO C PICC LINE CARE AND PER FACILITY PROTOCOL CALL DR ALLAN FOR [facility] ORDER
[2018-05-25 17:11] VITALS: BP 130/82; PULSE 75; RESP 20; TEMP 97.7; O2SAT 97
== END 2018-05-25 20:15 | disposition home or self-care (01) | DRG 540 ==
LOC: C.ER 14:17 → C.9E 18:01 → C.5S 20:21
PROVIDERS: ADMIT Internal Medicine Cardiovascular Disease; ATTEND Internal Medicine Cardiovascular Disease
PROC: 02HV33Z Insertion of Infusion Device into Superior Vena Cava, Percutaneous Approach (ICD-10-PCS; principal; 2018-05-23)
DX: M86.171 Other acute osteomyelitis, right ankle and foot (principal); T81.31XA Disruption of external operation (surgical) wound, not elsewhere classified, initial encounter; S22.32XA Fracture of one rib, left side, initial encounter for closed fracture; S02.82XA Fracture of other specified skull and facial bones, left side, initial encounter for closed fracture; Z86.61 Personal history of infections of the central nervous system; F17.210 Nicotine dependence, cigarettes, uncomplicated; N40.0 Benign prostatic hyperplasia without lower urinary tract symptoms; J44.9 Chronic obstructive pulmonary disease, unspecified; I10 Essential (primary) hypertension; H40.9 Unspecified glaucoma

== ENCOUNTER 2018-10-29 18:53 | Emergency (ER) | payer BC ==
[2018-10-29 18:53] VITALS: BMI 22.4
[2018-10-29 19:01] VITALS: RESP 20; TEMP 98.4
[2018-10-29] MEDS ORDERED: Dexamethasone 4 mg/1 ml IV STA (19:41)
--- NOTE | 2018-10-29 19:41 | C.PDOC ---
History Of Present Illness 63 year old male presents to the ER complaining of sneezing, cough, runny nose, throat pain, and pain with swallowing after cleaning with chlorox at approximately 4-5 hours ago. Patient states he has never cleaned with chlorox before. Denies Hx of asthma, chest pain or SOB. Time Seen by Provider: 10/29/18 19:18 Chief Complaint (Nursing): Cough, Cold, Congestion History Per: Patient History/Exam Limitations: no limitations Onset/Duration Of Symptoms: Hrs Current Symptoms Are (Timing): Still Present Initiating Event: Other (Exposure to chlorox) Associated Symptoms: denies: Chest Pain, Other (SOB) Recent travel outside of the [place]: No Past Medical History Reviewed: Historical Data, Nursing Documentation, Vital Signs Vital Signs: Last Vital Signs Temp 98.4 F 10/29/18 18:54 Pulse 81 10/29/18 18:54 Resp 20 10/29/18 18:54 BP 156/78 H 10/29/18 18:54 Pulse Ox 100 10/29/18 18:54 - Medical History PMH: Fractures (LEFT FOREARM, right ankle s/p open reduction and internal fixation), Gastritis, HTN, Seizures ( A CHILD; STOPPED BY AGE 16) Denies: Chronic Kidney Disease - [facility] Procedures ENDOSCOPIC BRONCHIAL BX (12/07/14) ESOPHAGOGASTRODUODENOSCOPY [EGD] W/CLOSED BIOPSY (02/20/14) INSERTION OF INFUSION DEV INTO SUP VENA CAVA, PERC APPROACH (05/18/18) SPINAL TAP (01/20/13) Family History: States: Unknown Family Hx - Social History Hx Tobacco Use: Yes Hx Alcohol Use: No Hx Substance Use: No - Immunization History Hx Tetanus Toxoid Vaccination: No Hx Influenza Vaccination: No Hx Pneumococcal Vaccination: No Review Of Systems Except As Marked, All Systems Reviewed And Found Negative. Constitutional: Negative for: Fever, Chills ENT: Positive for: Nose Discharge, Throat Pain Cardiovascular: Negative for: Chest Pain, Palpitations Respiratory: Positive for: Cough, Other (Sneezing). Negative for: Shortness of Breath Physical Exam - Physical Exam Appears: Non-toxic, Other (Mild distress) Skin: Normal Color, Warm, Dry Head: Atraumatic, Normacephalic Eye(s): bilateral: Normal Inspection Nose: Discharge (Clear), Other (Congestion) Oral Mucosa: Moist Throat: Normal, No Erythema, No Other (Swelling) Neck: Normal ROM, Supple Chest: Symmetrical, No Tenderness Cardiovascular: Rhythm Regular Respiratory: Normal Breath Sounds, No Rales, No Rhonchi, No Stridor, No Wheezing Gastrointestinal/Abdominal: Soft, No Tenderness Neurological/Psych: Oriented x3, Normal Speech ED Course And Treatment O2 Sat by Pulse Oximetry: 100 (Room air) Pulse Ox Interpretation: Normal Progress - Re-Evaluation Re-evaluation Note: 10/29/18 21:05 COUGHING, SNEEZING IMPROVED. NARD VSS. 10/29/18 22:02 NARD APPEARS COMFORTABLE. NO STRIDOR, WHEEZE, DROOL - Data Reviewed Data Reviewed: Diagnostic imaging, Old records Medical Decision Making Medical Decision Making: Plan: * Albuterol * Decadron * Claritin Disposition Counseled Patient/Family Regarding: Diagnosis, Need For Followup - Disposition Referrals: YOUR,PMD [Other] Disposition: HOME/ ROUTINE Disposition Time: 22:02 Condition: IMPROVED Prescriptions: Ibuprofen [Motrin] 600 mg PO Q6 #30 tab Forms: [facility] (Irish), General Discharge Instructions, Work Excuse - Clinical Impression Clinical Impression: Accidental exposure to bleach, Inhalation of noxious fumes - Scribe Statement The provider has reviewed the documentation as recorded by the Scribmaurilio Luciano All medical record entries made by the Scribe were at my direction and personally dictated by me. I have reviewed the chart and agree that the record accurately reflects my personal performance of the history, physical exam, medical decision making, and the department course for this patient. I have also personally directed, reviewed, and agree with the discharge instructions and di sposition.
[2018-10-29] MEDS ORDERED: Albuterol 0.083% Inhal Sol (2.5 mg/3 mL) UD INH SCH (19:45)
[2018-10-29] MEDS ORDERED: Dexamethasone 4 mg/1 ml ONE (20:12)
[2018-10-29] MEDS ORDERED: Albuterol 0.083% Inhal Sol (2.5 mg/3 mL) UD ONE (20:13)
[2018-10-29 23:36] VITALS: BP 142/86; PULSE 78; O2SAT 97
== END 2018-10-29 22:10 | disposition home or self-care (01) ==
LOC: C.ER 18:53
DX: T54.91XA Toxic effect of unspecified corrosive substance, accidental (unintentional), initial encounter (principal)
CPT/HCPCS: 96374; 99284; J1100

== ENCOUNTER 2018-12-27 14:47 | Outpatient (CLI) | payer BC | END 2018-12-27 14:48 | disposition home or self-care (01) | LOC: C.PAT 14:47 | DX: N40.1 Benign prostatic hyperplasia with lower urinary tract symptoms (principal) ==

== ENCOUNTER 2019-01-08 16:09 | Inpatient (IN) | payer BC ==
[2018-12-27 14:52] VITALS: BMI 22.7
[2019-01-08] MEDS ORDERED: Iohexol 240 (50 ml) ONE (17:05)
[2019-01-08] MEDS ORDERED: Lidocaine 2% Jelly (Uro-Jet) ONE (17:05)
[2019-01-08] MEDS ORDERED: cefTRIAXone 1 gm 1 GM/100 ML BAG IVPB ONE (17:05)
[2019-01-08] MEDS ORDERED: Propofol 10 mg/ml Inj (20 ML) ONE (17:25)
[2019-01-08] MEDS ORDERED: Midazolam 2 MG/2 ML VIAL ONE (17:25)
[2019-01-08] MEDS ORDERED: ePHEDrine 50 mg/ml Inj ONE (17:35)
--- NOTE | 2019-01-08 19:17 | PCM.SURG1 ---
Surgeon's Initial Post Op Note - Surgeon's Notes Surgeon: Sola Alfaro Hris Analyst: none Type of Anesthesia: General LMA Pre-Operative Diagnosis: BPH Operative Findings: same, urethral stricture Post-Operative Diagnosis: same Operation Performed: cysto, urethral dilation, TURP Specimen/Specimens Removed: urine, prostate Estimated Blood Loss: EBL {In ML}: 150 Blood Products Given: N/A Post-Op Condition: Good Date of Surgery/Procedure: 01/08/19 Time of Surgery/Procedure: 18:50
--- NOTE | 2019-01-08 19:45 | CP.PCM.HP ---
History of Present Illness - History of Present Illness History of Present Illness: Patient is a 63 years old black male with a history of COPD hypertension is status post TURP today admitted for further treatment and observation. Currently patient is postop with a De La Cruz catheter with blood-tinged urine. Complaining of postop pain. Recently patient was admitted in [facility] and rehab for osteomyelitis of the right ankle. Which is completely healed. Patient still has some deformity Present on Admission - Present on Admission Any Indicators Present on Admission: No Review of Systems - Review of Systems All systems: reviewed and no additional remarkable complaints except (postop pain) Past Patient History - Past Medical History & Family History Past Medical History?: Yes - Past Social History Smoking Status: Heavy Smoker > 10 Cigarettes Daily - CARDIAC Hx Hypertension: Yes - PULMONARY Hx Respiratory Disorders: No - NEUROLOGICAL Hx Neurological Disorder: Yes Hx Seizures: Yes ( A CHILD; STOPPED BY AGE 16) - HEENT Hx HEENT Problems: Yes Hx Glaucoma: Yes - RENAL Hx Chronic Kidney Disease: No - ENDOCRINE/METABOLIC Hx Endocrine Disorders: No - HEMATOLOGICAL/ONCOLOGICAL Hx Blood Disorders: No Other/Comment: PT CLAIMS HE WAS HOSPITALIZED FIVE MONTHS AGO DUE TO AN INFECTION CAUSED BY AN EPIDURAL INJECTION FOR HIS BACK. HE CLAIMS THE INFECTION WAS IN HIS EYES. WHEN QUESTIONED WHAT KIND OF INFECTION,. MENINGITS?, HE DENIES AND SAYS "I'M NOT SURE, THEY MAY HAVE BEEN TREATING ME FOR GONORRHEA OR SYPHYLLIS. - INTEGUMENTARY Hx Dermatological Problems: No - MUSCULOSKELETAL/RHEUMATOLOGICAL Hx Musculoskeletal Disorders: Yes Hx Back Pain: Yes (LOW BACK) Hx Falls: No Hx Fractures: Yes (LEFT FOREARM, right ankle s/p open reduction and internal fixation) Hx Herniated Disk: Yes (CERVICAL SPINE) Hx Osteoarthritis: Yes (KNEES) - GASTROINTESTINAL Hx Gastrointestinal Disorders: Yes Hx Gastritis: Yes HX Swallowing Problems: Yes - GENITOURINARY/GYNECOLOGICAL Hx Genitourinary Disorders: Yes Hx Prostate Problems: Yes - PSYCHIATRIC Hx Psychophysiologic Disorder: No Hx Substance Use: No - SURGICAL HISTORY Hx Surgeries: Yes Hx Open Reduction Internal Fixation: Yes (Rt ankle) Hx Orthopedic Surgery: Yes (HERNIATED DISCS REPAIRED CERVICAL SPINE WITH NALINI IMPLANT; LEFT ARM FX.) - ANESTHESIA Hx Anesthesia: Yes Hx Anesthesia Reactions: No Hx Malignant Hyperthermia: No Meds Allergies/Adverse Reactions: Allergies Allergy/AdvReac Type Severity Reaction Status Date / Time No Known Allergies Allergy Verified 12/27/18 14:52 Physical Exam - Constitutional Appears: Well - Head Exam Head Exam: ATRAUMATIC, NORMAL INSPECTION, NORMOCEPHALIC - Eye Exam Eye Exam: EOMI, Normal appearance, PERRL Pupil Exam: NORMAL ACCOMODATION, PERRL - ENT Exam ENT Exam: Mucous Membranes Moist, Normal Exam - Neck Exam Neck exam: Positive for: Normal Inspection - Respiratory Exam Respiratory Exam: Clear to Auscultation Bilateral, NORMAL BREATHING PATTERN - Cardiovascular Exam Cardiovascular Exam: REGULAR RHYTHM - GI/Abdominal Exam GI & Abdominal Exam: Normal Bowel Sounds, Soft. absent: Tenderness - Exam Exam: NORMAL INSPECTION - Extremities Exam Extremities exam: Positive for: normal inspection - Back Exam Back exam: NORMAL INSPECTION - Neurological Exam Neurological exam: Alert, Altered, CN II-XII Intact Results - Vital Signs Recent Vital Signs: Last Vital Signs Temp 97.1 F L 01/08/19 18:52 Pulse 76 01/08/19 19:40 Resp 14 01/08/19 19:40 BP 132/74 01/08/19 19:40 Pulse Ox 100 01/08/19 19:40 Assessment & Plan (1) S/P TURP (status post transurethral resection of prostate) Status: Acute Comment: continue postop orders as outlined by the urology (2) HTN (hypertension) Status: Acute
[2019-01-08] MEDS: HYDROmorphone 0.5 mg/0.5 ml ISec IVP PRN ×2 (20:19→20:40)
[2019-01-08 21:55] VITALS: RESP 20
[2019-01-08] MEDS: Oxycodone/Acetaminophen 5/325 mg Tab PO PRN (22:04)
[2019-01-08] MEDS: Potassium Ch 20mEq in D5-1/2NS 1,000 ML IV SCH (22:53)
[2019-01-08] MEDS: Latanoprost 2.5 ml Opht Soln OS SCH (23:04)
[2019-01-09] MEDS: Potassium Ch 20mEq in D5-1/2NS 1,000 ML IV SCH ×2 (05:36→16:00)
[2019-01-09 06:28] LABS: HEMOGLOBIN 11.5 g/dL (12.0-18.0); MEAN CORPUSCULAR HGB CONC 33.4 g/dL (33.0-37.0); MEAN PLATELET VOLUME 7.8 fL (7.2-11.7); RBC 3.71 Mil/uL (4.40-5.90); RED CELL DISTRIBUTION WIDTH 15.4 % (11.5-14.5); WHITE BLOOD COUNT 11.9 K/uL (4.8-10.8)
[2019-01-09 07:07] LABS: BLOOD UREA NITROGEN 10 mg/dL (9-20); CALCIUM 8.9 mg/dl (8.6-10.4); GFR NON-AFRICAN AMERICAN > 60
[2019-01-09] MEDS: Oxycodone/Acetaminophen 5/325 mg Tab PO PRN ×2 (08:23→19:51)
[2019-01-09] MEDS: Multiple Vitamins Tab PO SCH (10:21)
--- NOTE | 2019-01-09 12:22 | CP.PCM.PN ---
Subjective - Date & Time of Evaluation Date of Evaluation: 01/09/19 Time of Evaluation: 12:20 - Subjective Subjective: POST OP PAIN PINKISH URINE AFEBRILE VS STABLE P/E NO CHANGE URINE C/S NEG CONT POST OP ORDERS Objective - Vital Signs/Intake and Output Vital Signs (last 24 hours): Temp Pulse Resp BP Pulse Ox 97.9 F 74 20 113/64 97 01/09/19 07:00 01/09/19 07:00 01/09/19 07:00 01/09/19 07:00 01/09/19 07:00 Intake and Output: 01/09/19 01/09/19 11:59 23:59 Intake Total 06427 Output Total 66306 Balance -500 - Medications Medications: Current Medications Docusate Sodium (Colace) 100 mg PO TID [facility] Last Admin: 01/09/19 10:23 Dose: 100 mg Dorzolamide HCl (Trusopt) 0 ml OU BID IRA Finasteride (Proscar) 5 mg PO DAILY [facility] Last Admin: 01/09/19 12:02 Dose: 5 mg Hydroxyzine HCl (Atarax) 25 mg PO DAILY [facility] Last Admin: 01/09/19 12:02 Dose: 25 mg Potassium Chloride/Dextrose/Sod Cl (Potassium Chl 20 Meq In D5-1/2ns) 1,000 mls @ 100 mls/hr IV .Q10H [facility] Last Admin: 01/09/19 05:36 Dose: Not Given Ceftriaxone Sodium 1 gm/ (Sodium Chloride) 100 mls @ 100 mls/hr IVPB DAILY [facility]; Protocol Last Admin: 01/09/19 12:03 Dose: 100 mls/hr Latanoprost (Xalatan Opht) 0 ml OS HS [facility] Last Admin: 01/08/19 23:04 Dose: Not Given Multivitamins (Hexavitamin) 1 tab PO DAILY [facility] Last Admin: 01/09/19 10:21 Dose: 1 tab Oxycodone/Acetaminophen (Percocet 5/325 Mg Tab) 1 tab PO Q4H PRN PRN Reason: Pain, moderate (4-7) Stop: 01/11/19 19:20 Last Admin: 01/09/19 08:23 Dose: 1 tab Pneumococcal Polyvalent Vaccine (Pneumovax 23 Vaccine) 0.5 ml IM .ONCE ONE Stop: 01/10/19 10:01 Tamsulosin HCl (Flomax) 0.4 mg PO DAILY [facility] Last Admin: 01/09/19 10:21 Dose: 0.4 mg - Labs Labs: 01/09/19 06:23 01/09/19 06:23 Assessment and Plan (1) S/P TURP (status post transurethral resection of prostate) Status: Acute (2) HTN (hypertension) Status: Acute
[2019-01-09] MEDS: Dorzolamide 2% Opht Sol 10ml OU SCH (17:06)
[2019-01-09] MEDS: Latanoprost 2.5 ml Opht Soln OS SCH (21:30)
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
[2019-01-09 23:01] LABS: URINE BILIRUBIN NEGATIVE (NEGATIVE); URINE BLOOD 3+ (NEGATIVE); URINE CLARITY Hazy (Clear); URINE COLOR Red (YELLOW); URINE GLUCOSE (UA) NORMAL (Normal); URINE LEUKOCYTE ESTERASE 1+ Leu/uL (Negative); URINE PROTEIN 1+ mg/dL (NEGATIVE); URINE UROBILINOGEN NORMAL mg/dL (0.2-1.0)
[2019-01-10 07:57] LABS: BASO # 0.1 K/uL (0.0-0.2); BASO % 0.8 % (0.0-2.0); EOS # 0.3 K/uL (0.0-0.7); EOS % 3.5 % (0.0-4.0); HEMOGLOBIN 13.1 g/dL (12.0-18.0); LYMPH # 1.1 K/uL (1.0-4.3); LYMPH % 15.2 % (20.0-40.0); MEAN CELL VOLUME 93.3 fL (80.0-94.0); MEAN CORPUSCULAR HEMOGLOBIN 31.6 pg (27.0-31.0); MEAN CORPUSCULAR HGB CONC 33.8 g/dL (33.0-37.0); MONO # 0.8 K/uL (0.0-0.8); MONO % 11.1 % (0.0-10.0); NEUT # 5.1 K/uL (1.8-7.0); NEUT % 69.4 % (50.0-75.0); RBC 4.14 Mil/uL (4.40-5.90); RED CELL DISTRIBUTION WIDTH 15.2 % (11.5-14.5); WHITE BLOOD COUNT 7.4 K/uL (4.8-10.8)
[2019-01-10 08:43] LABS: ALB/GLOB RATIO 1.2 (1.0-2.1); ALBUMIN 3.6 g/dL (3.5-5.0); ALT/SGPT 22 U/L (21-72); AST/SGOT 37 U/L (17-59); BILIRUBIN,DIRECT 0.1 mg/dL (0.0-0.4); BLOOD UREA NITROGEN 11 mg/dL (9-20); CALCIUM 9.2 mg/dl (8.6-10.4); GFR NON-AFRICAN AMERICAN > 60
[2019-01-10 08:45] VITALS: BP 115/64; PULSE 86; TEMP 97.9; O2SAT 97
[2019-01-10] MEDS: Oxycodone/Acetaminophen 5/325 mg Tab PO PRN (08:45)
[2019-01-10] MEDS: Multiple Vitamins Tab PO SCH (09:10)
[2019-01-10] MEDS: Dorzolamide 2% Opht Sol 10ml OU SCH (09:13)
[2019-01-10] MEDS ORDERED: Pneumococcal 23-Valent Vaccine IM ONE ×2 (10:00→13:04)
[2019-01-10] MEDS ORDERED: Magnesium Hydroxide Susp 30 ml UD PO ONE (11:09)
--- NOTE | 2019-01-10 12:15 | CP.PCM.DIS ---
Provider - Provider Date of Admission: 01/08/19 19:21 Attending physician: Jess Alfaro MD Time Spent in preparation of Discharge (in minutes): 35 Diagnosis - Discharge Diagnosis (1) S/P TURP (status post transurethral resection of prostate) Status: Acute (2) HTN (hypertension) Status: Acute Hospital Course - Lab Results Lab Results: Micro Results 01/08/19 19:59 Urine,Clean Catch Urine Culture - Final No Growth (<1,000 CFU/ML) Most Recent Lab Values WBC 7.4 K/uL (4.8-10.8) 01/10/19 07:30 RBC 4.14 Mil/uL (4.40-5.90) L 01/10/19 07:30 Hgb 13.1 g/dL (12.0-18.0) 01/10/19 07:30 Hct 38.6 % (35.0-51.0) 01/10/19 07:30 MCV 93.3 fL (80.0-94.0) 01/10/19 07:30 MCH 31.6 pg (27.0-31.0) H 01/10/19 07:30 MCHC 33.8 g/dL (33.0-37.0) 01/10/19 07:30 RDW 15.2 % (11.5-14.5) H 01/10/19 07:30 Plt Count 171 K/uL (130-400) 01/10/19 07:30 MPV 8.0 fL (7.2-11.7) 01/10/19 07:30 Neut % (Auto) 69.4 % (50.0-75.0) 01/10/19 07:30 Lymph % (Auto) 15.2 % (20.0-40.0) L 01/10/19 07:30 Brooks % (Auto) 11.1 % (0.0-10.0) H 01/10/19 07:30 Eos % (Auto) 3.5 % (0.0-4.0) 01/10/19 07:30 Baso % (Auto) 0.8 % (0.0-2.0) 01/10/19 07:30 Neut # (Auto) 5.1 K/uL (1.8-7.0) 01/10/19 07:30 Lymph # (Auto) 1.1 K/uL (1.0-4.3) 01/10/19 07:30 Brooks # (Auto) 0.8 K/uL (0.0-0.8) 01/10/19 07:30 Eos # (Auto) 0.3 K/uL (0.0-0.7) 01/10/19 07:30 Baso # (Auto) 0.1 K/uL (0.0-0.2) 01/10/19 07:30 Sodium 139 mmol/L (132-148) 01/10/19 07:30 Potassium 4.2 mmol/L (3.6-5.2) 01/10/19 07:30 Chloride 105 mmol/L (98-107) 01/10/19 07:30 Carbon Dioxide 23 mmol/L (22-30) 01/10/19 07:30 Anion Gap 14 (10-20) 01/10/19 07:30 BUN 11 mg/dL (9-20) 01/10/19 07:30 Creatinine 1.1 mg/dL (0.8-1.5) 01/10/19 07:30 Est GFR ( Amer) > 60 01/10/19 07:30 Est GFR (Non-Af Amer) > 60 01/10/19 07:30 Random Glucose 88 mg/dL (75-110) 01/10/19 07:30 Calcium 9.2 mg/dl (8.6-10.4) 01/10/19 07:30 Total Bilirubin 0.9 mg/dL (0.2-1.3) 01/10/19 07:30 Direct Bilirubin 0.1 mg/dL (0.0-0.4) 01/10/19 07:30 AST 37 U/L (17-59) 01/10/19 07:30 ALT 22 U/L (21-72) 01/10/19 07:30 Alkaline Phosphatase 64 U/L (38-126) 01/10/19 07:30 Total Protein 6.6 g/dL (6.3-8.3) 01/10/19 07:30 Albumin 3.6 g/dL (3.5-5.0) 01/10/19 07:30 Globulin 3.0 gm/dL (2.2-3.9) 01/10/19 07:30 Albumin/Globulin Ratio 1.2 (1.0-2.1) 01/10/19 07:30 Urine Color Red (YELLOW) 01/09/19 22:42 Urine Clarity Hazy (Clear) 01/09/19 22:42 Urine pH 7.0 (5.0-8.0) 01/09/19 22:42 Ur Specific [place] 1.006 (1.003-1.030) 01/09/19 22:42 Urine Protein 1+ mg/dL (NEGATIVE) H 01/09/19 22:42 Urine Glucose (UA) Normal mg/dL (Normal) 01/09/19 22:42 Urine Ketones Negative mg/dL (NEGATIVE) 01/09/19 22:42 Urine Blood 3+ (NEGATIVE) H 01/09/19 22:42 Urine Nitrate Negative (NEGATIVE) 01/09/19 22:42 Urine Bilirubin Negative (NEGATIVE) 01/09/19 22:42 Urine Urobilinogen Normal mg/dL (0.2-1.0) 01/09/19 22:42 Ur Leukocyte Esterase 1+ Lesli/uL (Negative) H 01/09/19 22:42 Urine WBC (Auto) 16 /hpf (0-5) H 01/09/19 22:42 Urine RBC (Auto) 1698 /hpf (0-3) H 01/09/19 22:42 Blood Type O POSITIVE 01/08/19 18:47 Antibody Screen Negative 01/08/19 18:47 - Hospital Course Hospital Course: Patient is a 63 years old black male with a history of COPD hypertension is status post TURP today admitted for further treatment and observation. Currently patient is postop with a De La Cruz catheter with blood-tinged urine. Complaining of postop pain. Recently patient was admitted in [facility] and rehab for osteomyelitis of the right ankle. Which is completely healed. Patient still has some deformity PT WAS OBSERVED FOR 2 DAYS AND STABLE D/C ON PO AB Discharge Exam - Head Exam Head Exam: NORMAL INSPECTION Discharge Plan - Discharge Medications Prescriptions: Docusate [Colace] 100 mg PO TID #100 cap Levofloxacin [Levaquin] 500 mg PO DAILY #7 tablet oxyCODONE/Acetaminophen [Percocet 5/325 mg Tab] 1 tab PO Q4H PRN #12 tab PRN Reason: Pain, Moderate (4-7) - Follow Up Plan Condition: GOOD Disposition: HOME/ ROUTINE Additional Instructions: Please f/u with Dr. Ramos office in 1 week Please f/u with Dr. Alfaro office - call and make appointment De La Cruz to leg bag and drainage bag at night time Please continue antibiotics for 7 days Please resume all home medications
--- NOTE | 2019-01-10 23:18 | PCM.URO ---
Urology Progress Note - General General: Tolerating Diet - Subjective Abdominal Pain: Yes (mild, sp discomfort) Flank Pain: No Nausea: No Vomiting: No Hematuria: Yes (mild, clears promptly) Dsypnea: No Chest Pain: No Fever & Chills: No - Objective Lab Studies: Reviewed Lab Results Last 24 Hours: Laboratory Results - last 24 hr 01/10/19 01/10/19 07:30 07:30 WBC 7.4 RBC 4.14 L Hgb 13.1 Hct 38.6 MCV 93.3 MCH 31.6 H MCHC 33.8 RDW 15.2 H Plt Count 171 MPV 8.0 Neut % (Auto) 69.4 Lymph % (Auto) 15.2 L Colbert % (Auto) 11.1 H Eos % (Auto) 3.5 Baso % (Auto) 0.8 Neut # (Auto) 5.1 Lymph # (Auto) 1.1 Colbert # (Auto) 0.8 Eos # (Auto) 0.3 Baso # (Auto) 0.1 Sodium 139 Potassium 4.2 Chloride 105 Carbon Dioxide 23 Anion Gap 14 BUN 11 Creatinine 1.1 Est GFR ( Amer) > 60 Est GFR (Non-Af Amer) > 60 Random Glucose 88 Calcium 9.2 Total Bilirubin 0.9 Direct Bilirubin 0.1 AST 37 ALT 22 Alkaline Phosphatase 64 Total Protein 6.6 Albumin 3.6 Globulin 3.0 Albumin/Globulin Ratio 1.2 Intake & Output: Intake & Output 01/10/19 01/10/19 01/11/19 06:59 18:59 06:59 Intake Total 3620 600 Output Total 7000 1100 Balance -3380 -500 Intake: Intake, IV Amount 500 Right Antecubital 500 Oral 120 600 Other 3000 Output: Urine 7000 1100 3-way Urethral 3300 1100 Stool 0 Other: # Bowel Movements 0 Vital Signs: Vital Signs - 24 hr 01/09/19 01/10/19 01/10/19 23:35 04:19 07:15 Temperature 98.1 F 98.3 F 97.9 F Pulse Rate 79 74 86 Respiratory 20 20 20 Rate Blood Pressure 99/59 L 99/60 L 115/64 O2 Sat by Pulse 98 95 97 Oximetry - Physical Exam Abdominal Exam: Soft, Non-Tender, Non-Distended Bowel Sounds: Normal Back: No CVA Tenderness Genitalia: Without Inflammation Urinary Catheter Draining Well: Yes Urine Color: [place] Extremities: Normal: Bilateral - Male Phallus: Normal Scrotum: Normal Testes: Normal: Bilateral - Plan Advance Diet: Yes Catheter Care: Yes Ambulation - Out of Bed: Yes Discontinue Intravenous Fluids: Yes Intake & Output: Yes See Orders: Yes Additional Information: IMP: progressing well p TURP. See orders. Discussed further care with patient and nursing staff - Date & Time of Note Date: 01/09/19 Time: 10:40
--- NOTE | 2019-01-10 23:22 | PCM.URO ---
Urology Progress Note - General General: No Complaints, Tolerating Diet - Subjective Abdominal Pain: No Flank Pain: No Nausea: No Vomiting: No Hematuria: Yes (pink urine) Dsypnea: No Chest Pain: No Fever & Chills: No - Objective Lab Results Last 24 Hours: Laboratory Results - last 24 hr 01/10/19 01/10/19 07:30 07:30 WBC 7.4 RBC 4.14 L Hgb 13.1 Hct 38.6 MCV 93.3 MCH 31.6 H MCHC 33.8 RDW 15.2 H Plt Count 171 MPV 8.0 Neut % (Auto) 69.4 Lymph % (Auto) 15.2 L [place]ukes % (Auto) 11.1 H Eos % (Auto) 3.5 Baso % (Auto) 0.8 Neut # (Auto) 5.1 Lymph # (Auto) 1.1 [place]ukes # (Auto) 0.8 Eos # (Auto) 0.3 Baso # (Auto) 0.1 Sodium 139 Potassium 4.2 Chloride 105 Carbon Dioxide 23 Anion Gap 14 BUN 11 Creatinine 1.1 Est GFR ( Amer) > 60 Est GFR (Non-Af Amer) > 60 Random Glucose 88 Calcium 9.2 Total Bilirubin 0.9 Direct Bilirubin 0.1 AST 37 ALT 22 Alkaline Phosphatase 64 Total Protein 6.6 Albumin 3.6 Globulin 3.0 Albumin/Globulin Ratio 1.2 Intake & Output: Intake & Output 01/10/19 01/10/19 01/11/19 06:59 18:59 06:59 Intake Total 3620 600 Output Total 7000 1100 Balance -3380 -500 Intake: Intake, IV Amount 500 Right Antecubital 500 Oral 120 600 Other 3000 Output: Urine 7000 1100 3-way Urethral 3300 1100 Stool 0 Other: # Bowel Movements 0 Vital Signs: Vital Signs - 24 hr 01/09/19 01/10/19 01/10/19 23:35 04:19 07:15 Temperature 98.1 F 98.3 F 97.9 F Pulse Rate 79 74 86 Respiratory 20 20 20 Rate Blood Pressure 99/59 L 99/60 L 115/64 O2 Sat by Pulse 98 95 97 Oximetry - Physical Exam Abdominal Exam: Soft, Non-Tender, Non-Distended Back: No CVA Tenderness Genitalia: Without Inflammation Urine Color: [place] Extremities: Normal: Bilateral - Male Phallus: Normal Scrotum: Normal Testes: Normal: Bilateral - Plan Catheter Care: Yes Ambulation - Out of Bed: Yes Intake & Output: Yes See Orders: Yes Additional Information: IMP: doing well p TURP. P/Rec: path pending. singh to leg bag. Home today. outpt f/u. restricted activity. Rx: arielle ragsdale. Discussed w pt and w nursing staff. YS - Date & Time of Note Date: 01/10/19 Time: 10:55
--- NOTE | 2019-01-12 15:42 | OP ---
PROCEDURE DATE: 01/08/2019 PREOPERATIVE DIAGNOSIS: Benign prostatic hypertrophy. POSTOPERATIVE DIAGNOSES: 1. Benign prostatic hypertrophy. 2. Urethral stricture. PROCEDURES: Cystoscopy. Urethral dilation. Transurethral resection of the prostate. OPERATING SURGEON: Jess Alfaro MD DESCRIPTION OF PROCEDURE: As follows: The patient received general anesthesia. The patient received perioperative antibiotics. The patient was placed in lithotomy position. The genitalia prepped and draped sterilely. A 22-Maldivian cystoscope sheath was introduced under direct vision. The urethra was inspected. There was noted to be a stricture in the midurethra. A ureteral catheter was inserted through the urethral stricture into the bladder. After, the cystoscope sheath was advanced over the ureteral catheter. The prostate and bladder were inspected. FINDINGS: The prostatic urethra was occlusive secondary to trilobar prostatic hypertrophy. There was a medium-sized middle lobe with intravesical intrusion. There was marked bladder trabeculation. There was no bladder tumor identified. There was no bladder stone identified. Prostatic urethra was 3.5 cm in length. The cystoscope and sheath were removed. The ureteral catheter was left in place as a guide. A 26-Maldivian continuous flow resectoscope sheath was introduced under direct vision using the visual obturator. The resectoscope was inserted. The obstructing prostatic tissue was resected. Dissection was begun at the middle lobe on the floor. Thereafter, the anterior roof tissue was resected. Subsequently, the right lateral lobe and left lateral lobe were resected. Finally, the floor and apical prostatic tissue were resected. Hemostasis was achieved after the resection. The prostatic chips were removed using the Microvasive evacuator. The resectoscope was reinserted. There were no residual prostatic chips. Hemostasis was complete. The resectoscope and sheath were removed. A De La Cruz catheter was inserted into the bladder. Bladder drainage was clear with mild traction applied. The patient was returned to the supine position. The patient tolerated the procedure without complication. Jess Alfaro MD
== END 2019-01-10 17:19 | disposition home or self-care (01) | DRG 713 ==
LOC: C.SDS 16:09 → C.9S 19:21 → C.6T 21:02
PROVIDERS: ADMIT Internal Medicine Cardiovascular Disease; ATTEND Urology
PROC: 0T7D7ZZ Dilation of Urethra, Via Natural or Artificial Opening (ICD-10-PCS; 2019-01-08)
PROC: 0VT08ZZ Resection of Prostate, Via Natural or Artificial Opening Endoscopic (ICD-10-PCS; principal; 2019-01-08 17:00)
DX: N40.1 Benign prostatic hyperplasia with lower urinary tract symptoms (principal); M86.9 Osteomyelitis, unspecified; B49 Unspecified mycosis; I10 Essential (primary) hypertension; J44.9 Chronic obstructive pulmonary disease, unspecified; R31.0 Gross hematuria; F17.210 Nicotine dependence, cigarettes, uncomplicated; H40.9 Unspecified glaucoma; L30.9 Dermatitis, unspecified; N35.919 Unspecified urethral stricture, male, unspecified site; N32.89 Other specified disorders of bladder